=== PATIENT | female | born 1945 | race Caucasian/White ===

== ENCOUNTER → 2023-05-19 07:30 | Outpatient (REF) | payer MEDICARE, OTHER, SELFPAY | LOC: CLAB 07:30 | PROVIDERS: ATTENDING PHYSICIAN Surgery | DX: N20.0 Calculus of kidney (principal) | CPT/HCPCS: 82365 ==

== ENCOUNTER → 2023-09-02 13:06 | Outpatient (REF) | payer MEDICARE, OTHER, SELFPAY | LOC: RAD 13:06 | PROVIDERS: ATTENDING PHYSICIAN Surgery | DX: N20.0 Calculus of kidney (principal) | CPT/HCPCS: 76775 ==

== ENCOUNTER → 2024-08-10 15:10 | Outpatient (REF) | payer MEDICARE, OTHER, SELFPAY | LOC: RAD 15:10 | PROVIDERS: ATTENDING PHYSICIAN Surgery; FAMILY PHYSICIAN Family Medicine | DX: N20.0 Calculus of kidney (principal) | CPT/HCPCS: 76775 ==

== ENCOUNTER 2025-01-23 00:10 | Inpatient (IN) | payer MEDICARE, OTHER, SELFPAY ==
[2025-01-22 19:55] VITALS: BP 128/71
[2025-01-22 20:21] LABS: Hematocrit 38.6 % (37.0-47.0); Hemoglobin 12.3 g/dL (12.0-16.0); Mean Corp Hgb Conc. 31.9 g/dL (33.0-37.0); Mean Corpuscular Volume 93.7 fL (81.0-99.0); Nucleated Red Blood Cells % 0 %; Platelet Count 298 10^3/uL (130-400); Red Cell Dist. Width 13.4 % (11.5-14.5)
[2025-01-22 20:41] LABS: ALT (SGPT) 19 U/L (0-35); AST (SGOT) 24 U/L (14-36); Albumin 4.4 g/dl (3.5-5.0); Alkaline Phosphatase 48 U/L (38-126); Blood Urea Nitrogen 35 mg/dl (7-17); Calcium 9.6 mg/dl (8.4-10.2); Carbon Dioxide 23 mmol/L (22-30); Chloride 102 mmol/L (98-107); Glucose 162 mg/dl (70-99); Potassium 4.7 mmol/L (3.5-5.1); Sodium 137 mmol/L (135-145); Total Protein 6.8 g/dl (6.3-8.2); eGFR 51.11
--- NOTE | 2025-01-22 21:06 | ED.GENMED ---
History of Present Illness
<Donovan Palomo, DO - Last Filed: 01/22/25 22:46>
General
Chief Complaint: Extremity Pain (non-traumatic)
Source: patient
Exam Limitations: none
Time Seen by Provider: 01/22/25 20:53
History of Present Illness
History of Present Illness:
See MDM
Past History
<Donovan Palomo, DO - Last Filed: 01/22/25 22:46>
Past History
ED Past Medical History: Cancer, HTN, Hypercholesterolemia and Other
ED Past Surgical History: None and Orthopedic (Back surgery)
Patient has exhibited threatening behavior?: No
Social History
Tobacco: Non-smoker
Personal:
Living: with family
Phy Exam
<Donovan Palomo, DO - Last Filed: 01/22/25 22:46>
Physical Exam
Physical Exam:
See MDM
Course
<Donovan Palomo, DO - Last Filed: 01/22/25 22:46>
Orders/Labs/Results
Orders:
Orders
01/22/25 19:54
Electrocardiogram (*1) Urgent
Reason for Study: Other
Other Reason for Exam: Possible Sepsis
EKG- Treatment ONCE
01/22/25 20:00
Blood Culture Q20M
CRISTI Source: Blood/Venous
Specimen Description:
Comment: Urgent from separate sites. If patient screens positive for possible sepsis
01/22/25 20:15
Complete Blood Count/With Diff Urgent
Comprehensive Metabolic Panel Urgent
Lactic Acid Q4H
Comment: ON ICE, CANCEL 2ND ORDER IF FIRST LACTIC ACID LEVEL <2
Blood Culture Q20M
CRISTI Source: Blood/Venous
Specimen Description:
Comment: Urgent from separate sites. If patient screens positive for possible sepsis
01/22/25 21:01
CT Lower Ext W/iv Cont Rt Urgent
Comment:
Reason For Exam: R thigh pain and swelling
0.9% Sodium Chloride 1000 ml [Nss] 1,000 ml IV BOLUS
Morphine Sulfate 4 mg IV NOW STA
Piperacillin/Tazo 3.375 Gram [Zosyn] 3.375 gram in 50 ml IV NOW
01/22/25 21:03
Vancomycin [Vancocin] 1,500 mg 0.9% Sodium Chloride 500 ml [Nss] 500 ml IV NOW
01/22/25 21:17
Vancomycin [Vancocin] 2,000 mg 0.9% Sodium Chloride 500 ml [Nss] 500 ml IV NOW
01/22/25 22:32
Urinalysis Reflex To Culture Urgent
01/22/25 23:39
Hyaluronidase, Human Recomb. [Hylenex] 150 units SC NOW STA
Extravasation Stage:: Stage 2
Potential extravasated drug:: Vancomycin
Hyaluronidase, Human Recomb. [Hylenex] 150 units SC ONCE PRN PRN
Elevate Extremity As Directed
Extremity:: limb with extravasation site
Comment: x 24 hours`
Notify MD As Directed
Notify physician if: - Signs of infection (temperature greater than or equal to 100.4 F, chills).
- Signs of wound infection (swelling, redness, warmth around the wound, pain out of
proportion to injury).
- Skin changes color, peels, flakes, or blisters.
- Patient not able to move the affected limb.
Wound Care As Directed
Location of Wound: extravasation site
Treatment of Wound: assess and stage extravasation site.
initiate immediate topical therapy (cold/warm compress) as ordered.
01/22/25 23:40
Cold Application As Directed
Location: extravasation site
Frequency: Intermittent q2h
Duration of Application: No longer than 20 minutes
Method of Delivery: Cold compress
Comment: 20 minute application Q2H x 24 hours
01/22/25 23:57
Admit/Transfer Patient As Directed
Co-Sign Provider:
Level of Care: Inpatient admission
Assign to:: Medical/Surgical
Physician / Group: Adriana Zarco
Diagnosis: right leg pain and edema, skin infection
Reason for Hospitalization: right leg pain and edema, skin infection
Expected length of stay greater than two midnights?: Yes
ELOS- Estimated Length of Stay in days: 3
I certify the patient meets the requirements for IP care: Yes
PRN Pain Medication Management As Directed
May give lesser potent ordered pain med per pt: Yes
preference::
Protocol:: Medication orders for pain may be administered in a
manner that supports deferring to patient preference
when the pt is:
- Requesting an ordered lesser potent pain medication.
Least to most potent pain medications are defined
as: acetaminophen < NSAID < tramadol < opioids
(morphine, oxycodone, hydromorphone).
- Requesting a lesser dose of the same medication IF
ORDERED.
- Requesting a less intrusive route of administration
if both routes are prescribed by the provider (PO <
IV).
01/22/25 23:59
Code Status As Directed
Resuscitation Status: Do not resuscitate
Reached after discussion with pt or family/Healthcare POA: Yes
Decision communicated with: patient and daughter
DNR Bracelet Application ONCE
01/23/25 00:15
Lactic Acid Q4H
Comment: ON ICE, CANCEL 2ND ORDER IF FIRST LACTIC ACID LEVEL <2
Abnormal Lab Results
01/22/25
20:15
WBC 12.8 H 10^3/uL
(4.8-10.8)
RBC 4.12 L 10^6/uL
(4.20-5.40)
MCHC 31.9 L g/dL
(33.0-37.0)
Abs Immat Gran (auto) 0.1 H 10^3/uL
(0-0.05)
Absolute Neuts (auto) 11.2 H 10^3/uL
(1.4-6.5)
Absolute Lymphs (auto) 0.9 L 10^3/uL
(1.2-3.4)
Neutrophils % 87.8 H %
(42.2-75.2)
Lymphocytes % 7.2 L %
(20.5-51.1)
BUN 35 H mg/dl
(7-17)
Creatinine 1.1 H mg/dL
(0.6-1.0)
Glucose 162 H mg/dl
(70-99)
Lactic Acid 4.9 H* mmol/L
(0.7-2.0)
01/22/25 20:15
01/22/25 20:15
Vital Signs
Initial and Last Documented VS:
Initial Vital Signs
Temp Pulse Resp BP Pulse Ox
97.7 F 79 15 128/71 100
01/22/25 19:55 01/22/25 19:55 01/22/25 19:55 01/22/25 19:55 01/22/25 19:55
Last Documented Vital Signs
Temp Pulse Resp BP Pulse Ox
97.7 F 64 15 156/95 71
01/22/25 19:55 01/23/25 00:45 01/23/25 00:45 01/22/25 22:31 01/23/25 00:40
Angelalt;Abdulaziz Weems DO - Last Filed: 01/23/25 00:59>
Orders/Labs/Results
Orders:
Orders
01/22/25 19:54
Electrocardiogram (*1) Urgent
Reason for Study: Other
Other Reason for Exam: Possible Sepsis
EKG- Treatment ONCE
01/22/25 20:00
Blood Culture Q20M
CRISTI Source: Blood/Venous
Specimen Description:
Comment: Urgent from separate sites. If patient screens positive for possible sepsis
01/22/25 20:15
Complete Blood Count/With Diff Urgent
Comprehensive Metabolic Panel Urgent
Lactic Acid Q4H
Comment: ON ICE, CANCEL 2ND ORDER IF FIRST LACTIC ACID LEVEL <2
Blood Culture Q20M
CRISTI Source: Blood/Venous
Specimen Description:
Comment: Urgent from separate sites. If patient screens positive for possible sepsis
01/22/25 21:01
CT Lower Ext W/iv Cont Rt Urgent
Comment:
Reason For Exam: R thigh pain and swelling
0.9% Sodium Chloride 1000 ml [Nss] 1,000 ml IV BOLUS
Morphine Sulfate 4 mg IV NOW STA
Piperacillin/Tazo 3.375 Gram [Zosyn] 3.375 gram in 50 ml IV NOW
01/22/25 21:03
Vancomycin [Vancocin] 1,500 mg 0.9% Sodium Chloride 500 ml [Nss] 500 ml IV NOW
01/22/25 21:17
Vancomycin [Vancocin] 2,000 mg 0.9% Sodium Chloride 500 ml [Nss] 500 ml IV NOW
01/22/25 22:32
Urinalysis Reflex To Culture Urgent
01/22/25 23:39
Hyaluronidase, Human Recomb. [Hylenex] 150 units SC NOW STA
Extravasation Stage:: Stage 2
Potential extravasated drug:: Vancomycin
Hyaluronidase, Human Recomb. [Hylenex] 150 units SC ONCE PRN PRN
Elevate Extremity As Directed
Extremity:: limb with extravasation site
Comment: x 24 hours`
Notify MD As Directed
Notify physician if: - Signs of infection (temperature greater than or equal to 100.4 F, chills).
- Signs of wound infection (swelling, redness, warmth around the wound, pain out of
proportion to injury).
- Skin changes color, peels, flakes, or blisters.
- Patient not able to move the affected limb.
Wound Care As Directed
Location of Wound: extravasation site
Treatment of Wound: assess and stage extravasation site.
initiate immediate topical therapy (cold/warm compress) as ordered.
01/22/25 23:40
Cold Application As Directed
Location: extravasation site
Frequency: Intermittent q2h
Duration of Application: No longer than 20 minutes
Method of Delivery: Cold compress
Comment: 20 minute application Q2H x 24 hours
01/22/25 23:57
Admit/Transfer Patient As Directed
Co-Sign Provider:
Level of Care: Inpatient admission
Assign to:: Medical/Surgical
Physician / Group: Adriana Zarco
Diagnosis: right leg pain and edema, skin infection
Reason for Hospitalization: right leg pain and edema, skin infection
Expected length of stay greater than two midnights?: Yes
ELOS- Estimated Length of Stay in days: 3
I certify the patient meets the requirements for IP care: Yes
PRN Pain Medication Management As Directed
May give lesser potent ordered pain med per pt: Yes
preference::
Protocol:: Medication orders for pain may be administered in a
manner that supports deferring to patient preference
when the pt is:
- Requesting an ordered lesser potent pain medication.
Least to most potent pain medications are defined
as: acetaminophen < NSAID < tramadol < opioids
(morphine, oxycodone, hydromorphone).
- Requesting a lesser dose of the same medication IF
ORDERED.
- Requesting a less intrusive route of administration
if both routes are prescribed by the provider (PO <
IV).
01/22/25 23:59
Code Status As Directed
Resuscitation Status: Do not resuscitate
Reached after discussion with pt or family/Healthcare POA: Yes
Decision communicated with: patient and daughter
DNR Bracelet Application ONCE
01/23/25 00:15
Lactic Acid Q4H
Comment: ON ICE, CANCEL 2ND ORDER IF FIRST LACTIC ACID LEVEL <2
Abnormal Lab Results
01/22/25
20:15
WBC 12.8 H 10^3/uL
(4.8-10.8)
RBC 4.12 L 10^6/uL
(4.20-5.40)
MCHC 31.9 L g/dL
(33.0-37.0)
Abs Immat Gran (auto) 0.1 H 10^3/uL
(0-0.05)
Absolute Neuts (auto) 11.2 H 10^3/uL
(1.4-6.5)
Absolute Lymphs (auto) 0.9 L 10^3/uL
(1.2-3.4)
Neutrophils % 87.8 H %
(42.2-75.2)
Lymphocytes % 7.2 L %
(20.5-51.1)
BUN 35 H mg/dl
(7-17)
Creatinine 1.1 H mg/dL
(0.6-1.0)
Glucose 162 H mg/dl
(70-99)
Lactic Acid 4.9 H* mmol/L
(0.7-2.0)
01/22/25 20:15
01/22/25 20:15
Vital Signs
Initial and Last Documented VS:
Initial Vital Signs
Temp Pulse Resp BP Pulse Ox
97.7 F 79 15 128/71 100
01/22/25 19:55 01/22/25 19:55 01/22/25 19:55 01/22/25 19:55 01/22/25 19:55
Last Documented Vital Signs
Temp Pulse Resp BP Pulse Ox
97.7 F 64 15 156/95 71
01/22/25 19:55 01/23/25 00:45 01/23/25 00:45 01/22/25 22:31 01/23/25 00:40
<Donovan Palomo, DO - Last Filed: 01/22/25 22:46>
MDM/Problems Addressed
Differential Diagnosis Includes:
Note:
CHIEF COMPLAINT(S)
Leg pain.
HISTORY OF PRESENT ILLNESS
The patient is a 79-year-old female with a medical history of rheumatoid arthritis, fibromyalgia, and previous femur surgery three to four years ago. She presents with significant pain on the top of her leg that began approximately eight days ago.
The patient describes the swelling and believes it may be fluid buildup. She has had multiple surgeries, including a femur reconstruction and two artificial knees, and is currently on prednisone for her condition. The patient reports taking
prednisone, prescribed by her family doctor for her leg pain, prior to this visit. No recent injury was noted besides having activities such as gardening. The patients lab work shows elevated lactic acid levels and a slight elevation in white blood
cell count. Given that she is on Eliquis, patient likely does not have a blood clot. Given the swelling and elevated lactic acid, will obtain CT imaging for deep space infection. No crepitus to suspect necrotizing fasciitis
PAST MEDICAL AND SURGICAL HISTORY
- Rheumatoid arthritis
- Fibromyalgia
- Femur surgery (3-4 years ago)
- Two knee arthroplasties
CHRONIC MEDICAL CONDITIONS SIGNIFICANTLY AFFECTING CARE
Chronic conditions affecting care include rheumatoid arthritis and fibromyalgia.
PHYSICAL EXAM
General: Alert, no acute distress.
Skin: Warm, dry.
Head: Normocephalic, atraumatic
Neck: Appears supple, trachea midline.
Eyes, Ears, Nose, Mouth, and Throat: Moist mucous membranes
Cardiovascular: No signs of cyanosis
Respiratory: Respirations are non-labored.
Abdomen: Non-distended
Musculoskeletal: Swelling and tenderness noted to right anterior lateral thigh without ischemic changes. Distal extremity neurovascularly intact. No crepitus
Neurological: No focal neurological deficit observed.
Psychiatric: Cooperative, appropriate mood and affect.
PLAN
- Perform a computed tomography (CT) scan to evaluate for fluid, infection, or structural issues in the leg.
- Administer antibiotics: Vancomycin and Piperacillin/Tazobactam (Zosyn) initiated.
- Pain management with a small dose of morphine is planned to alleviate leg pain without excessive sedation.
DIFFERENTIAL DIAGNOSIS
The Differential Diagnosis includes, in no particular order and is not limited to:
- Cellulitis
- Septic arthritis
- Deep vein thrombosis
- Osteomyelitis
- Complex regional pain syndrome
- Fracture or pseudo fracture
- Hematoma
- Rheumatoid arthritis flare
- Rupture of Bakers cyst
- Bursitis
SUMMARY OF ENCOUNTER
The patient was seen in the emergency department for severe leg pain with associated swelling. She has a history of rheumatoid arthritis and fibromyalgia, complicating the diagnostic challenge. Lab work indicates elevated lactic acid levels,
prompting the initiation of antibiotics due to potential infection. A CT scan of the leg was ordered to further evaluate the underlying cause, primarily considering the presence of fluid or infection. Pain management was implemented with a low dose
of morphine.
DISPOSITION
The patient is planned to be admitted for overnight observation and further evaluation.
ASSESSMENT
The patient presents with leg pain and swelling, with a clinical suspicion of underlying infection, and is receiving antibiotics empirically. A CT scan will provide further diagnostic clarification.
EMERGENCY TREATMENTS ADMINISTERED
- Vancomycin and Piperacillin/Tazobactam (Zosyn)
- Morphine for pain management
MANAGEMENT OF THE PATIENTS CARE WAS DISCUSSED WITH
Details regarding management were discussed with the patient and her acceptance for admission was confirmed.
MEDICATION RECONCILIATION
- Currently on prednisone as prescribed by a family doctor for leg pain.
MEDICAL DECISION MAKING
- Number and Complexity of Problems Addressed:
Chronic conditions affecting care include rheumatoid arthritis and fibromyalgia.
The Differential Diagnosis includes cellulitis, septic arthritis, and others.
- Data:
Category 1:
Lab work reviewed revealed elevated lactic acid levels and slight leukocytosis.
CT scan was ordered for further evaluation of the leg.
Category 3:
Antibiotic management initiated based on lab findings and clinical suspicion.
- Risk:
Consideration of Admission/Observation: Escalation of care including admission/observation was considered given the complexity and risk of the patients presenting complaint, exam findings, and/or their underlying comorbidities. However, ultimately,
it was felt the patient is safe for outpatient management with close follow-up. The reasoning was the work-up is reassuring and does not reveal any acute life/organ-threatening processes. The patients symptoms were well controlled upon reevaluation,
reexamination is reassuring, vitals are stable, patient agreeable with discharge, reliable for follow-up.
DIAGNOSIS
- Leg pain - ICD-10 Code M79.605
<Donovan Palomo, DO - Last Filed: 01/22/25 22:46>
*Pulse Oximetry
SaO2: 100
Oxygen Mode of Delivery: Room air
Patient hypoxic: no
*Critical Care Note
Total Time (30-74mins, 75-104mins- exclusive of procedures): Not Applicable
<Abdulaziz Weems, DO - Last Filed: 01/23/25 00:59>
Update Note
Update Note:
NAME: LUCINDA PRITCHETT
DATE OF EXAM: 01/23/2025
Patient No: [id number]
Physician: DONAL^YOHANA
Date of : 1945
Past Medical History (entered by Technologist):
Reason For Exam (entered by Technologist):
Other Notes (entered by Technologist): rt leg swelling and pain
prior pelvis ct sent
Additional Information (per [facility]):
CT right lower extremity with contrast
IMPRESSION:
Imaging from right pelvis through knee joint.
Moderate subcutaneous edema lateral right thigh with crescentic lateral compartment superficial muscle fascial crescentic mass suspicious for hematoma, measuring 3 cm transverse, 9.5 cm AP, and 20 cm in length. Few serpiginous foci of
hypoenhancement within superior aspect suspicious for active extravasation. Follow-up to exclude underlying mass advised.
Intact right femoral neck screws for treatment of femoral neck fracture documented on 12/29/2020 exam. New end-stage arthritic/atrophic change right femoral head resulting in screw ends abutting acetabular margin. Possible granulation
tissue/hypertrophied synovium along inferior right hip joint.
Visualized intrapelvic contents unremarkable. Hysterectomy. Moderate fecal loading. No adenopathy.
Severe right gluteal muscle atrophy. Lower lumbar posterior fusion partially visualized.
Right knee arthroplasty.
Minimal lower aortic atherosclerotic calcification. Right common and external iliac arteries patent. Common femoral, profundofemoral and superficial femoral artery demonstrate mild atherosclerosis.
Findings discussed with Dr. Weems in the ER at 12:50 AM ET
Case finalized on 01/23/25 00:55 EST
Donaldo Wright M.D.
This report has been electronically signed and verified by the Radiologist whose name is printed above.
ED Attending Note
<Donovan Palomo, DO - Last Filed: 01/22/25 22:46>
-
Portions of this chart may have been created with voice recognition software.� Occasional wrong word or��sound alike� substitutions may have occurred due to the inherent limitations of voice recognition software.
Discharge Plan
Departure
Patient Disposition: Admit
Date of Disposition: 01/22/25
Time of Disposition: 22:45
Admit to: Med/Surg
Presentation/result/management discussed w/ accepting MD/DO: Hospitalist
Discharge Problem:
Skin infection
Interventions
Interventions:
*Risk Screen - Suicide Last Done: 01/22/25 19:55
*General Assessment Last Done: 01/22/25 19:55
*Neglect/Abuse Screening Last Done: 01/22/25 19:55
*ED- Fall Risk Assessment Last Done: 01/22/25 21:16
*ED COVID-19 Vaccine History Last Done: 01/22/25 19:55
*ED Influenza Vaccine History Last Done: 01/22/25 19:55
ED-Skin Assessment Last Done: 01/22/25 21:16
ED-Peripheral Vascular Assessment Last Done: 01/22/25 21:16
ED-Musculoskeletal Assessment Last Done: 01/22/25 21:16
[2025-01-22 21:09] VITALS: BMI 29.4
[2025-01-22 21:48] VITALS: BP 151/71
[2025-01-22] MEDS: MORPHINE SULFATE 4 MG IV (22:11)
[2025-01-22] MEDS: VANCOCIN IV ×2 (22:27→23:36)
[2025-01-22 22:31] VITALS: BP 156/95
--- NOTE | 2025-01-22 23:08 | HPS.HSE ---
Family Physician
-
Family Physician: Emigdio Lozano
Chief Complaint
-
right thigh pain and swelling
History of Present Illness
Patient is a 79-year-old female with past medical history significant for hypertension, hyperlipidemia, paroxysmal atrial fibrillation, HFrEF, Rheumatoid arthritis, nonischemic cardiomyopathy, moderate mitral regurgitation, Hx uterine cancer and Hx
breast cancer who presented to [facility] ED for evaluation of right thigh pain and edema. Patient reports that pain started approximately 5 days ago and has gotten significantly worse since onset and today started with swelling. She endorses nausea and
vomiting today. Denies fever, chills, cough, shortness of breath, chest pain, diarrhea or urinary symptoms.
Medical History
Past Medical History
Past Medical History: Reports Other
Additional Past Medical History:
hypertension
hyperlipidemia
paroxysmal atrial fibrillation
HFrEF
Rheumatoid arthritis
nonischemic cardiomyopathy
moderate mitral regurgitation
Hx uterine cancer
Hx breast cancer
Past Surgical History: Reports Other
Additional Past Surgical History:
LUPE/BSO (endometrial ca) 1992
Cholecystectomy
tonsillectomy
Bilateral knee replacements
Surgery, lumbar spine
Lumpectomy
decompression and fusion lumbar spine 03/25/2020
Right Femoral Neck Cannulated Screw Fixation 12.31.2020 SG
right URS/LL/stone extraction/stent placement 04/2023
Social History
Tobacco: Non-smoker
Alcohol: None
Drug: None
Living: Alone
Family History
Family History: Not pertinent
Allergies / Home Medications
Allergies reflects when Allergies were last updated in [employer].
Home Medications with original date entered in [employer]
Allergy/Medication List:
Allergies
Allergy/AdvReac Type Severity Reaction Status Date / Time
Sulfa (Sulfonamide Allergy Hives Verified 01/22/25 21:08
Antibiotics)
Home Medications
Lactobac no.2-Bifidobac no.1-S. thermo 112.5 billion cell capsule (High Potency Probiotic) 1 cap PO DAILY PROBIOTIC 11/30/19
calcium 600 mg (as carbonate)-vit D3 20 mcg (800 unit) chewable tablet (Caltrate plus D) 1 tab PO HS Supplement 06/21/20
ascorbic acid (vitamin C) 500 mg tablet (Vitamin C) 500 mg PO DAILY Supplement 12/29/20
atorvastatin 40 mg tablet 40 mg PO DAILY High cholesterol 12/29/20
omeprazole 20 mg delayed release,disintegrating tablet 20 mg PO DAILY Gastrointestinal issue 12/29/20
baclofen 5 mg tablet 5 mg PO BID 01/22/25
duloxetine 30 mg capsule,delayed release 30 mg PO DAILY 01/22/25
duloxetine 60 mg capsule,delayed release 60 mg PO DAILY 01/22/25
metoprolol succinate 25 mg tablet,extended release 24 hr 25 mg PO DAILY 01/22/25
metoprolol succinate 50 mg tablet,extended release 24 hr 50 mg PO DAILY 01/22/25
prednisone 10 mg tablet 10 mg PO DAILY 01/22/25
pregabalin 50 mg capsule 50 mg PO DAILY 01/22/25
Review of Systems
-
History Source: Patient
Constitutional: Denies Fever or Chills
EENT: Denies Sore Throat
Respiratory: Denies Cough, Hemoptysis or Trouble Breathing
Cardiac: Denies Chest Pain, Diaphoresis, Palpitations or Syncope
Abdomen/GI: Reports Nausea and Vomiting; Denies Abdominal Pain or Diarrhea
: Denies Dysuria, Frequency or Urgency
Musculoskeletal: Reports Other (right thigh pain and swelling )
Skin: Denies Rash
Neurological: Denies Dizzy, Headache, Weakness or Numbness
Endocrine: Denies Polyuria or Polydipsia
Physical Exam
Vital Signs
Vital Signs
Temp Pulse Resp BP Pulse Ox
97.7 F 79 15 128/71 100
01/22/25 19:55 01/22/25 19:55 01/22/25 19:55 01/22/25 19:55 01/22/25 21:08
Physical Exam
General: Well Developed, Well Nourished, No Apparent Distress, Comfortable, Conversant and Obese
HEENT: NormoCephalic, Moist mucous membranes, PERRLA, Nose Appears Normal and Ears Appear Normal
Respiratory: Clear and Non Labored Respirations; No Wheezes, Rales or Rhonchi
Cardiac: Regular Rhythm; No Murmur
GI: Soft, Non Tender, Non Distended and Normal Bowel Sounds
Musculoskeletal: No Clubbing, No Cyanosis and Other (right thigh edema, tender to palpation)
Skin: Warm and IV/Catheter Site (infiltrated )
Neuro: Awake and AO x 3
Psych: Calm
Laboratory Results
-
01/22/25 20:15
01/22/25 20:15
Laboratory Results
Lactic Acid 4.9 mmol/L (0.7-2.0) H* 01/22/25 20:15
Total Bilirubin 0.8 mg/dl (0.2-1.3) 01/22/25 20:15
AST 24 U/L (14-36) 01/22/25 20:15
ALT 19 U/L (0-35) 01/22/25 20:15
Alkaline Phosphatase 48 U/L (38-126) 01/22/25 20:15
Data Reviewed
-
Medical Tests (Nuc Med, Echo, EKG etc): Report Reviewed by me (EKG: SINUS RHYTHM WITH PREMATURE ATRIAL COMPLEXES IN A PATTERN OF BIGEMINY MINIMAL VOLTAGE CRITERIA FOR LVH, MAY BE NORMAL VARIANT ( R in aVL ))
Lab Data: Labs Reviewed by me (WBC 12.8, Neut 87.8, BUN 35, Creat 1.1, Lactic 4.9)
Impression/Plan
-
IMPRESSION/PLAN:
#right thigh pain and swelling
right thigh pain progressively worsening over 5 days, swelling started today
WBC 12.8, Neut 87.8, BUN 35, Creat 1.1, Lactic 4.9
Blood Cx: pending
EKG: SINUS RHYTHM WITH PREMATURE ATRIAL COMPLEXES IN A PATTERN OF BIGEMINY
MINIMAL VOLTAGE CRITERIA FOR LVH, MAY BE NORMAL VARIANT ( R in aVL )
- Admit to med/surg
- Consult Surgery
- IV LR 80cc/hr
- IV Vanco and Zosyn
- hold Eliquis
- check INR in AM
- trend lactic
- supportive care with leg elevation and cold compress PRN
#hypertension
- continue metoprolol
#hyperlipidemia
- continue atorvastatin
#paroxysmal atrial fibrillation
- continue metoprolol
- hold Eliquis
#HFrEF
#nonischemic cardiomyopathy
- daily weights
- I & Os
#Rheumatoid arthritis
- continue pregabalin and duloxetine
#moderate mitral regurgitation
#Hx uterine cancer
#Hx breast cancer
Code status: DNR
DVT prophylaxis: SCDs
--- NOTE | 2025-01-22 23:10 | W.PN.UPDATE ---
Update Note
Progress Note Update
Patient seen in conjunction with nurse practitioner, and agree with the findings and physical. I concur with assessment and plan unless otherwise stated.
Briefly, this is a 79-year-old female with past medical history of rheumatoid arthritis on DMARD infufsion, hypertension, hyperlipidemia, atrial fibrillation anticoagulation, CHF, nonrheumatic mitral regurgitation, nephrolithiasis, bilateral knee
replacements, right ORIF who presents to the emergency department with pain and swelling in his left leg that began yesterday.
Patient reports increasing pain in the right lower extremity for a few days. She did see a PMD who prescribed a steroid taper. Over the last 2 days the pain has gotten worse and she reported rapid swelling of right thigh today. She has not had
any fevers or chills. She reports no chronic weakness. She reports taking Eliquis in the morning but she has not taken her evening dose. She has a prior history of uterine cancer and breast cancer status post lumpectomy XRT and hormone therapy
completed.
In the emergency department she was afebrile, blood pressure was 128/70 with a pulse of 79 and she is satting 100% on room air. Temperature was 91.7. ECG shows a sinus rhythm at rate of 75 with PACs. Labs were remarkable for a white count of 12.8
hemoglobin and platelets were normal. Electrolytes BUN and creatinine were stable. Lactic acid was elevated at 4.9.
CT of the right lower extremity is pending.
Assessment and plan
79-year-old with history of rheumatoid arthritis, fibromyalgia, atrial fibrillation on anticoagulation, hypertension, hyperlipidemia presenting to the emergency department with pain and swelling to the right lower extremity. She is anticoagulated
on Eliquis. DVT pain and swelling is in the right thigh is suggestive of hematoma or an abscess.
She has elevated lactic acid, otherwise her labs are mostly benign and she is hemodynamically stable at this time and afebrile.
Right lower extremity swelling -suspect abscess versus hematoma
� Admit to telemetry
� Blood cultures sent
� CT scan pending
� IV Zosyn plus vancomycin
� MRSA swab
� Holding Eliquis for now
-N.p.o. for now
� Surgical specialty consult depending on CT scan finding
Atrial fibrillation -currently rate controlled
� Continue amiodarone 200 mg
� Continue metoprolol 100 mg succinate
UPDATE: CT showing moderate subcutaneous edema lateral right thigh with crescentic lateral compartment superficial muscle fascial crescentic mass suspicious for hematoma, measuring 3 cm transverse, 9.5 cm AP, and 20 cm in length. Few serpiginous
foci of hypoenhancement within superior aspect suspicious for active extravasation.
- d/c abx
- vascular consult
- hold off on reversal for now
DVT prophylaxis�on apixaban, holding for now pending CT scan
CODE STATUS�DNR
[2025-01-23] VITALS (15 sets, daily range): BP systolic 20–178; BP diastolic 41–102; BMI 29.1
[2025-01-23] MEDS: HYLENEX 150 UNITS SC (00:20)
--- NOTE | 2025-01-23 00:37 | VATNOTE ---
0020-VANCO INFILTRATE NOTED IN RAC. PCN REMOVED USG IV PRIOR TO MY ARRIVAL. AREA IS VERY RED AND MEASURES [id number]. PT REPORTS MINIMAL DISCOMFORT. PROVIDER AND THREE DIMENSIONAL MAP MODELER MADE AWARE AND BOTH SAW AFFECTED AREA. TREATED WITH HYLENEX PER PROTOCOL AND
DOCUMENTED. VANCO RESUMED AFTER PT RETURNED FROM CT SCAN AT THE REDUCED RATE ORDERED BY . PCN AND PROVIDER AWARE OF INTERVENTION AND OUTCOME. PT TOLERATED PROCEDURE WELL. VAT TO FOLLOW .
[2025-01-23] MEDS: VANCOCIN 540 MG IV (00:44)
[2025-01-23] MEDS: MORPHINE SULFATE 2 MG IV ×2 (02:30→08:26)
--- NOTE | 2025-01-23 02:41 | PTCARENOTE ---
Patient arrived from the ED via stretcher. Patient pulled over onto the bed. AAOx3, VSS. BP elevated. C/o 8/10 pain to the right thigh. + edema. Right upper arm edematous from infiltrate. Elevated onto a pillow. Vanco infusing already at half rate
per MD order in ED. No redness/swelling/pain to the site. Patient continent of urine. Using bedpan. Patient updated on plan of care, oriented to the room. Call rosas is within reach.
[2025-01-23 02:43] LABS: Urine Character Clear (Clear)
[2025-01-23] MEDS: LR 1000 IV ×2 (03:23→21:22)
[2025-01-23 04:33] LABS: Urine Squamous Cell 0-2 /LPF (Few)
[2025-01-23 04:36] LABS: Urine Red Blood Cell 0-2 /HPF (0-2)
[2025-01-23 06:05] LABS: Blood Urea Nitrogen 33 mg/dl (7-17); Calcium 8.7 mg/dl (8.4-10.2); Carbon Dioxide 25 mmol/L (22-30); Chloride 105 mmol/L (98-107); Estimated Creatinine Clearance 49 ml/min; Glucose 97 mg/dl (70-99); Potassium 4.2 mmol/L (3.5-5.1); Sodium 137 mmol/L (135-145); eGFR > 60.00
--- NOTE | 2025-01-23 06:07 | VATNOTE ---
REASSESSED RAC AFTER HYLENEX ADMINISTERED. SITE APPEARS MUCH IMPROVED. ONLY FAINT PINKNESS NOTED AND SWELLING HAS DIMINISHED SIGNIFICANTLY. PT ENDORSES NO PAIN. WILL CONTINUE TO MONITOR.
[2025-01-23 07:06] LABS: Hematocrit 29.7 % (37.0-47.0); Hemoglobin 10.1 g/dL (12.0-16.0); Mean Corp Hgb Conc. 34.0 g/dL (33.0-37.0); Mean Corpuscular Volume 88.1 fL (81.0-99.0); Platelet Count 221 10^3/uL (130-400); Red Cell Dist. Width 13.5 % (11.5-14.5)
--- NOTE | 2025-01-23 07:47 | W.PN.UPDATE ---
Update Note
Progress Note Update
Seen and examined with LAURA Wiseman. Full consultation to follow. Briefly 79-year-old female with extensive medical history as noted. Including atrial fibrillation on anticoagulation. No recent trauma that she is aware of. But a few days ago she
developed new onset of right lateral thigh pain and swelling. She noted however 2 days ago that this significantly swelled up more and was increasingly painful. Has continued pain now constantly. Significant tenderness she notes. No prior
history of any bleeding issues. No history of peripheral arterial disease. No history of coronary artery disease. No history of tobacco use.
I did ask her about walking limitation. She notes that she has been chronically walking with a cane even prior to this due to balance issues.
On exam/she is awake and alert. Breathing is unlabored. Abdomen is soft. 2+ palpable femoral pulses bilaterally. Right anterior/lateral thigh with swelling noted. Some fullness of the compartment but it compressible. Tenderness significantly
to compression. No skin changes. No blistering of the skin. Motor/sensory function fully intact. Feet are both warm and pink with palpable DP pulses bilaterally.
CT scan images from last evening reviewed. I personally reviewed the images. She has at least moderate right lateral thigh hematoma within the muscle compartment. (Anterior compartment). On images 80-92 out of 621 and series 201 there is what
appears to be some extravasation within this hematoma.
Plan/ Recently expanded right lateral thigh hematoma. Discussed with her that with no skin blistering, no evidence of compartment syndrome, no evidence of nerve compression, we could try to manage conservatively or alternatively she is having
significant pain could relieve it. She notes that she is having continued constant pain and 'I cannot continue to live like this.' Therefore discussed with her that based on the continued pain as well as extravasation noted on CT scan imaging,
would favor evacuation of hematoma surgically. Discussed this procedure. Discussed risk/benefits and alternatives with her. Discussed risks including but not limited to bleeding, infection, continued bleeding and need for additional surgeries,
recurrent bleeding. She understands all these things and wishes to proceed. Will add her onto the schedule for washout today. Continue to hold anticoagulation.
--- NOTE | 2025-01-23 07:52 | CON.VAS ---
Consultation
Consultation Request
Date/Time Consultation Performed: 01/23/25 @ 7:30am
Performing Provider: Jg
Reason for Consultation: Right thigh hematoma
Medical History
-
Chief Complaint: Right thigh pain
History of Present Illness:
79-year-old female with extensive medical history including hypertension, hyperlipidemia, paroxysmal atrial fibrillation on eliquis, HFrEF, Rheumatoid arthritis, nonischemic cardiomyopathy. No recent trauma that she is aware of. But a few days ago
she developed new onset of right lateral thigh pain and swelling. She noted however 2 days ago that this significantly swelled up more and was increasingly painful. Has continued pain now constantly. Significant tenderness she notes. No prior
history of any bleeding issues. No history of peripheral arterial disease. No history of coronary artery disease. No history of tobacco use.
I did ask her about walking limitation. She notes that she has been chronically walking with a cane even prior to this due to balance issues.
CT scan images from last evening reviewed. I personally reviewed the images. She has at least moderate right lateral thigh hematoma within the muscle compartment. (Anterior compartment). On images 80-92 out of 621 and series 201 there is what
appears to be some extravasation within this hematoma.
Past Medical History
Past Medical History: Other (hypertension, hyperlipidemia, paroxysmal atrial fibrillation, HFrEF, Rheumatoid arthritis, nonischemic cardiomyopathy, moderate mitral regurgitation, Hx uterine cancer, Hx breast cancer )
Past Surgical History: Other (LUPE/BSO (endometrial ca) 1992, Cholecystectomy, tonsillectomy, Bilateral knee replacements, Surgery, lumbar spine, Lumpectomy, decompression and fusion lumbar spine 03/25/2020, Right Femoral Neck Cannulated Screw
Fixation 12.31.2020 SG, right URS/LL/stone extraction/stent placement 04/2023)
Social History
Tobacco: Non-Smoker
Alcohol: None
Living: Alone
Family History
Family History: Reviewed & Not Pertinent
Allergies / Home Medications
Allergy/AdvReac Type Severity Reaction Status Date / Time
Sulfa (Sulfonamide Allergy Hives Verified 01/22/25 21:08
Antibiotics)
�Medication �Instructions �Recorded �Confirmed �Type
Lactobac no.2-Bifidobac no.1-S. 1 cap PO DAILY PROBIOTIC 11/30/19 01/22/25 History
thermo 112.5 billion cell capsule
(High Potency Probiotic)
calcium 600 mg (as carbonate)-vit 1 tab PO HS Supplement 06/21/20 01/22/25 History
D3 20 mcg (800 unit) chewable
tablet (Caltrate plus D)
ascorbic acid (vitamin C) 500 mg 500 mg PO DAILY Supplement 12/29/20 01/22/25 History
tablet (Vitamin C)
atorvastatin 40 mg tablet 40 mg PO DAILY High cholesterol 12/29/20 01/22/25 History
omeprazole 20 mg delayed 20 mg PO DAILY Gastrointestinal 12/29/20 01/22/25 History
release,disintegrating tablet issue
baclofen 5 mg tablet 5 mg PO BID 01/22/25 01/22/25 History
duloxetine 30 mg capsule,delayed 30 mg PO DAILY 01/22/25 01/22/25 History
release
duloxetine 60 mg capsule,delayed 60 mg PO DAILY 01/22/25 01/22/25 History
release
metoprolol succinate 25 mg 25 mg PO DAILY 01/22/25 01/22/25 History
tablet,extended release 24 hr
metoprolol succinate 50 mg 50 mg PO DAILY 01/22/25 01/22/25 History
tablet,extended release 24 hr
prednisone 10 mg tablet 10 mg PO DAILY 01/22/25 01/22/25 History
pregabalin 50 mg capsule 50 mg PO DAILY 01/22/25 01/22/25 History
Review of Systems
-
History Source: Patient
All other systems: Negative unless noted
Constitutional: Reports No Symptoms
EENT: Reports No Symptoms
Respiratory: Reports No Symptoms
Cardiac: Reports No Symptoms
Vascular: Denies Leg Pain / Claudication, Numbness or Tingling
Abdomen/GI: Reports No Symptoms
: Reports No Symptoms
Musculoskeletal: Reports Muscle Pain and Edema
Skin: Reports No Symptoms
Neurological: Reports No Symptoms
Physical Exam
Vital Signs
Temp Pulse Resp BP Pulse Ox
97.4 F 65 18 178/85 96
01/23/25 01:51 01/23/25 01:51 01/23/25 01:51 01/23/25 01:51 01/23/25 02:52
Lab Results
01/23/25 05:11
01/23/25 05:12
Physical Exam
General: No Apparent Distress
HEENT: Normocephalic and Atraumatic
Respiratory: Non Labored Respirations
Cardiac: Negative JVD
GI: Soft and Non Tender
Musculoskeletal: No Clubbing, No Cyanosis and Edema (RLE)
Skin: Warm and Other (slight ecchymosis right lateral thigh)
Neuro: Awake, Alert and Oriented
Psych: Calm
Pulses: Bilateral Dorsalis Pedis: +1
Assessment / Plan
-
Plan/ Recently expanded right lateral thigh hematoma. Discussed with her that with no skin blistering, no evidence of compartment syndrome, no evidence of nerve compression, we could try to manage conservatively or alternatively she is having
significant pain could relieve it. She notes that she is having continued constant pain and 'I cannot continue to live like this.' Therefore discussed with her that based on the continued pain as well as extravasation noted on CT scan imaging,
would favor evacuation of hematoma surgically. Discussed this procedure. Discussed risk/benefits and alternatives with her. Discussed risks including but not limited to bleeding, infection, continued bleeding and need for additional surgeries,
recurrent bleeding. She understands all these things and wishes to proceed. Will add her onto the schedule for washout today. Continue to hold anticoagulation.
Data Reviewed
-
CT Scan: Discussed with Patient
[2025-01-23] MEDS: CYMBALTA DELAYED RELEASE 60 MG PO (08:27)
[2025-01-23] MEDS: LIPITOR 40 MG PO (08:27)
[2025-01-23] MEDS: LYRICA 50 MG PO (08:27)
[2025-01-23] MEDS: PROTONIX 40 MG PO (08:28)
[2025-01-23] MEDS: VISBIOME 1 CAP PO (08:28)
[2025-01-23] MEDS: LIORESAL 5 MG PO ×2 (08:28→21:00)
[2025-01-23] MEDS: TOPROL XL 50 MG PO (08:28)
[2025-01-23] MEDS: TOPROL XL 25 MG PO (08:28)
[2025-01-23] MEDS: VITAMIN C 500 MG PO (08:28)
[2025-01-23] MEDS: CYMBALTA DELAYED RELEASE 30 MG PO (08:28)
--- NOTE | 2025-01-23 09:09 | W.PN.HOSP.TC ---
Today's Communication/Plan
-
see A/P
Assessment / Plan
Assessment / Plan
HPI: 79-year-old female with past medical history significant for hypertension, hyperlipidemia, paroxysmal atrial fibrillation, HFrEF, Rheumatoid arthritis, nonischemic cardiomyopathy, moderate mitral regurgitation, Hx uterine cancer and Hx breast
cancer; who presented with right thigh pain and edema. Patient reports that pain started approximately 5 days ago [employer] and has gotten significantly worse since onset and on DOA started with swelling.
She endorses nausea and vomiting on DOA.
A/P:
# right thigh pain and swelling
prelim CT showed moderate subcutaneous edema lateral right thigh with crescentic lateral compartment superficial muscle fascial crescentic mass suspicious for hematoma, measuring 3 cm transverse, 9.5 cm AP, and 20 cm in length. Few serpiginous foci
of hypoenhancement within superior aspect suspicious for active extravasation.
Vascular on board, favor evacuation of hematoma surgically due to severe pain.
Plan for washout today 01/23.
Continue to hold anticoagulation.
# hypertension
continue metoprolol with hold parameter
# hyperlipidemia
continue atorvastatin
# paroxysmal atrial fibrillation
continue metoprolol with hold parameter
hold Eliquis
# HFrEF
# nonischemic cardiomyopathy
daily weights, I & Os
# Rheumatoid arthritis
continue pregabalin and duloxetine
# moderate mitral regurgitation
# Hx uterine cancer
# Hx breast cancer
Code status: DNR
DVT prophylaxis: SCDs
Anticipated Discharge: > 48 hours
Subjective/Interval History
-
Date of Service: January 23, 2025
Objective Data
-
Labs:
Laboratory Results
01/23/25 01/23/25 01/23/25
05:11 05:12 06:00
WBC 16.4 H
Hgb 10.1 L
Hct 29.7 L
Plt Count 221 D
PT Pending
INR Pending
Sodium 137
Potassium 4.2
Chloride 105
Carbon Dioxide 25
BUN 33 H
Creatinine 0.9
Glucose 97
Calcium 8.7
Vital Signs:
Vital Signs
Temp Pulse Resp BP Pulse Ox
36.3 C 77 18 160/71 96
01/23/25 01:51 01/23/25 08:28 01/23/25 01:51 01/23/25 08:28 01/23/25 02:52
I&O
01/22/25 01/23/25 01/24/25
06:59 06:59 06:59
Intake Total 0 / 0
Balance 0 / 0
Review of Systems
-
History Source: Patient
Musculoskeletal: Reports Other (R thigh pain)
Physical Exam
-
General: Well Developed, Well Nourished, No Apparent Distress, Comfortable and Conversant; Negative Respiratory Distress
HEENT: Normocephalic, Atraumatic, Nose Appears Normal and Ears Appear Normal; Negative Oxygen
Respiratory: Clear to Auscultation and Non Labored Respirations; Negative Accessory Resp Muscle Use
Cardiac: Regular Rhythm and S1/S2
GI: Soft, Nontender, Nondistended and Normal Bowel Sounds
Skin: Warm and Dry
Neuro: Awake and Alert
Psych: Calm and Intact Judgement/Insight
Data Reviewed
-
Labs: Labs Reviewed by me
[2025-01-23] MEDS: BACTROBAN NASAL 1 GRAM NASAL (09:59)
--- NOTE | 2025-01-23 10:30 | TRANSFER ---
Report received from Nicole and patient received at 0935. Patient wiped and administered nasal bactroban ointment. Patient seen by Dr. Atkinson and Dr. Gregorio. VSS 133/102 HR 75 sats 95% RR 14. Report given to SOLANGE BRAY and now being seen by Desiree KRISHNAMURTHY
before being transferred in to vascular OR at 10:40.
--- NOTE | 2025-01-23 10:48 | W.SUR.PREOP ---
Pre-Operative Surgical Note
-
I have examined this patient prior to the performance of the scheduled procedure.
The patient's condition is unchanged from the time of the current History and
Physical and the patient is able to undergo the scheduled procedure.
--- NOTE | 2025-01-23 12:14 | OR.RPT ---
Operative Report
Operative Report
PROCEDURE DATE: 01/23/2025
Preoperative diagnosis: Tense painful hematoma right lateral thigh.
Postoperative diagnosis: Same
Procedure: Evacuation
Surgeon: Jg
Assurance Manager: LAURA Wiseman, required for aspects of procedure including assistance with traction/countertraction, assistance with closure.
Complications: None
Anesthesia: General
Indications for procedure:
Tense hematoma causing a lot of pain. In addition, CT demonstrated possible extravasation. Given recent expansion, continued pain, discussed with patient conservative management versus evacuation. She understood all discussion points and wished
to proceed with evacuation hematoma. Risk/benefits/alternatives all discussed. She understood and wished to proceed.
Description of procedure:
Patient was identified brought to the operating room placed on the table in supine position. After the adequate administration of anesthesia she was prepped and draped in the standard surgical fashion. A standard preoperative timeout was
undertaken and everybody was in agreement the plan. Longitudinal incision was made in the lateral proximal to mid thigh overlying where I could feel the compartment was somewhat leigh. This incision was carried through the skin and subcutaneous
tissue. There was a significant depth of subcutaneous tissue with generalized oozing from the tissue likely from her history of anticoagulation. Electrocautery was used to control any oozing. Self-retaining retractors were placed once I got down
to the level of the fascia. Fascia was not significantly bulging, but when I would push on it I could feel slight fullness. I then used electrocautery to incise the fascia. As soon as I did this I encountered gelatinous hematoma. I then
evacuated large amount of gelatinous hematoma throughout this anterior compartment. Significant hematoma was evacuated. Once I evacuated all the hematoma I inspected for any active bleeding and did not note any. We then used a pulse lavage
irrigation to irrigate 3 L of saline solution throughout this cavity. We then again inspected for any active bleeding and there was none. We confirmed hemostasis. I now brought a large round Simone drain out through a separate stab incision in the
skin (secured to the skin with a nylon stitch). This drain was placed into the fascial compartment overlying the muscle, and was looped such that it would drain the majority of the pocket that the hematoma had created within the compartment. The
subcutaneous tissues were closed with running 3-0 Vicryl deep dermal layer, and the skin was closed with a running 4-0 Monocryl subcuticular stitch. Dermabond was applied. Dressings were applied to the drain site. Patient tolerated the procedure
well.
--- NOTE | 2025-01-23 16:12 | PTCARENOTE ---
Recieved from OR in steretcher and pulled over to bed. Dressing with Alexi bandage intact CDI. EDDI drain with sanguineous drainage. + neurovascular checks.
--- NOTE | 2025-01-23 16:48 | CM ---
Met with patient at bedside; drowsy after procedure
Pharmacy verified; [facility] @ [address] [place] [address]
Lives alone; multilevel home; enters via Ramp
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
No SNF utilization history; Past Home Health services w/ [facility]
PT evaluation pending; will monitor for discharge needs
Daughter will provide transport home
Plan: Anticipate discharge to home; case management will monitor for needs
[2025-01-23] MEDS: OSCAL 500 + D 500 MG PO (21:16)
[2025-01-23 23:05] LABS: INR 1.04; PT 14.1 Sec (11.4-14.6)
[2025-01-24] VITALS (8 sets, daily range): BP systolic 106–150; BP diastolic 55–90
[2025-01-24 05:03] LABS: Hematocrit 21.8 % (37.0-47.0); Hemoglobin 7.1 g/dL (12.0-16.0); Mean Corp Hgb Conc. 32.6 g/dL (33.0-37.0); Mean Corpuscular Volume 94.0 fL (81.0-99.0); Platelet Count 201 10^3/uL (130-400); Red Cell Dist. Width 13.7 % (11.5-14.5)
[2025-01-24 05:14] LABS: Blood Urea Nitrogen 31 mg/dl (7-17); Calcium 8.3 mg/dl (8.4-10.2); Carbon Dioxide 29 mmol/L (22-30); Chloride 107 mmol/L (98-107); Estimated Creatinine Clearance 49 ml/min; Glucose 106 mg/dl (70-99); Magnesium 1.9 mg/dl (1.6-2.3); Potassium 4.3 mmol/L (3.5-5.1); Sodium 136 mmol/L (135-145); eGFR > 60.00
--- NOTE | 2025-01-24 06:53 | W.PN.UPDATE ---
Update Note
Progress Note Update
Blood consent obtained and placed in chart.
[2025-01-24 06:59] LABS: Hematocrit 22.6 % (37.0-47.0); Hemoglobin 7.6 g/dL (12.0-16.0)
--- NOTE | 2025-01-24 07:11 | W.PN.VS ---
Today's Communication / Plan
-
as above
Assessment/Plan
-
POD1 s/p hematoma evacuation
-Ok for OOB
-Continue BILLY wrap
-Continue EDDI
Subjective Data
-
Date of Service: January 24, 2025
No acute events. Patient having some incisional pain but feels pain/pressure overall improved
Objective Data
-
Vital Signs
Temp Pulse Resp BP Pulse Ox
97.6 F 74 16 106/60 95
01/24/25 03:00 01/24/25 03:00 01/24/25 03:00 01/24/25 03:00 01/24/25 03:00
Intake and Output
01/23/25 01/24/25 01/25/25
06:59 06:59 06:59
Intake Total 0 / 0 1250 / 1250
Output Total
Balance 0 / 0 1155 / 1155
Intake:
Oral fluids 0 / 0 240 / 240
IV fluids (Total) 1010 / 1010
NSS 50 / 50
Output:
Drain Output (Total)
Right Upper Leg Corey-Rosado
Other:
Number of approximated SMALL 1
amounts of urine
Number of approximated MODERATE 2
amounts of urine
Number of approximated LARGE 2
amounts of urine
Lab Results
01/24/25 06:44
01/24/25 04:24
Calcium 8.3 mg/dl (8.4-10.2) L 01/24/25 04:24
Magnesium 1.9 mg/dl (1.6-2.3) 01/24/25 04:24
Total Bilirubin 0.8 mg/dl (0.2-1.3) 01/22/25 20:15
AST 24 U/L (14-36) 01/22/25 20:15
ALT 19 U/L (0-35) 01/22/25 20:15
Alkaline Phosphatase 48 U/L (38-126) 01/22/25 20:15
Total Protein 6.8 g/dl (6.3-8.2) 01/22/25 20:15
Albumin 4.4 g/dl (3.5-5.0) 01/22/25 20:15
Physical Exam
-
NAD
Thigh soft
EDDI sang
[2025-01-24] MEDS: LR IV (09:43)
[2025-01-24] MEDS: LYRICA 50 MG PO (10:22)
[2025-01-24] MEDS: CYMBALTA DELAYED RELEASE 30 MG PO (10:22)
[2025-01-24] MEDS: VISBIOME 1 CAP PO (10:23)
[2025-01-24] MEDS: LIPITOR 40 MG PO (10:23)
[2025-01-24] MEDS: PROTONIX 40 MG PO (10:23)
[2025-01-24] MEDS: TOPROL XL 25 MG PO (10:23)
[2025-01-24] MEDS: CYMBALTA DELAYED RELEASE 60 MG PO (10:23)
[2025-01-24] MEDS: VITAMIN C 500 MG PO (10:23)
[2025-01-24] MEDS: LIORESAL 5 MG PO ×2 (10:23→20:17)
[2025-01-24] MEDS: TOPROL XL 50 MG PO (10:24)
--- NOTE | 2025-01-24 11:26 | W.PN.HOSP.TC ---
Today's Communication/Plan
-
see A/P
Assessment / Plan
Assessment / Plan
HPI: 79-year-old female with past medical history significant for hypertension, hyperlipidemia, paroxysmal atrial fibrillation, HFrEF, Rheumatoid arthritis, nonischemic cardiomyopathy, moderate mitral regurgitation, Hx uterine cancer and Hx breast
cancer; who presented with right thigh pain and edema. Patient reports that pain started approximately 5 days ago [employer] and has gotten significantly worse since onset and on DOA started with swelling.
She endorses nausea and vomiting on DOA.
A/P:
# right thigh pain and swelling
prelim CT showed moderate subcutaneous edema lateral right thigh with crescentic lateral compartment superficial muscle fascial crescentic mass suspicious for hematoma, measuring 3 cm transverse, 9.5 cm AP, and 20 cm in length. Few serpiginous foci
of hypoenhancement within superior aspect suspicious for active extravasation.
s/p hematoma evacuation 01/23 by vascular due to severe pain
Cont EDDI drain
Continue to hold anticoagulation.
PT eval post op
# Acute blood loss anemia following hematoma evacuation
Hgb dropped from 10 to 7.6,
transfuse 1 unit PRBC
# hypertension
continue metoprolol with hold parameter
# hyperlipidemia
continue atorvastatin
# paroxysmal atrial fibrillation
continue metoprolol with hold parameter
hold Eliquis
# HFrEF
# nonischemic cardiomyopathy
daily weights, I & Os
# Rheumatoid arthritis
continue pregabalin and duloxetine
# moderate mitral regurgitation
# Hx uterine cancer
# Hx breast cancer
Code status: DNR
DVT prophylaxis: SCDs
Anticipated Discharge: 24 - 48 hours
Subjective/Interval History
-
Date of Service: January 24, 2025
Objective Data
-
Labs:
Laboratory Results
01/24/25 01/24/25 01/24/25
04:24 04:25 06:44
WBC 10.0
Hgb 7.1 L D 7.6 L
Hct 21.8 L 22.6 L
Plt Count 201
Sodium 136
Potassium 4.3
Chloride 107
Carbon Dioxide 29
BUN 31 H
Creatinine 0.9
Glucose 106 H
Calcium 8.3 L
Vital Signs:
Vital Signs
Temp Pulse Resp BP Pulse Ox
37.1 C 72 16 150/60 97
01/24/25 10:46 01/24/25 10:46 01/24/25 10:46 01/24/25 10:46 01/24/25 07:57
I&O
01/23/25 01/24/25 01/25/25
06:59 06:59 06:59
Intake Total 0 / 0 1250 / 1250 0 / 0
Output Total 95 / 95
Balance 0 / 0 1155 / 1155 0 / 0
Review of Systems
-
History Source: Patient
Musculoskeletal: Reports Other (R thigh pain has improved )
Physical Exam
-
General: Well Developed, Well Nourished, No Apparent Distress, Comfortable and Conversant; Negative Respiratory Distress
HEENT: Normocephalic, Atraumatic, Nose Appears Normal and Ears Appear Normal; Negative Oxygen
Respiratory: Clear to Auscultation and Non Labored Respirations; Negative Accessory Resp Muscle Use
Cardiac: Regular Rhythm and S1/S2
GI: Soft, Nontender, Nondistended and Normal Bowel Sounds
Skin: Warm and Dry
Neuro: Awake and Alert
Psych: Calm and Intact Judgement/Insight
Data Reviewed
-
Labs: Labs Reviewed by me
[2025-01-24] MEDS: OSCAL 500 + D 500 MG PO (20:17)
[2025-01-25 04:54] LABS: Hematocrit 24.9 % (37.0-47.0); Hemoglobin 8.2 g/dL (12.0-16.0); Mean Corp Hgb Conc. 32.9 g/dL (33.0-37.0); Mean Corpuscular Volume 90.2 fL (81.0-99.0); Platelet Count 168 10^3/uL (130-400); Red Cell Dist. Width 16.3 % (11.5-14.5)
[2025-01-25 05:15] LABS: Blood Urea Nitrogen 30 mg/dl (7-17); Calcium 8.9 mg/dl (8.4-10.2); Carbon Dioxide 29 mmol/L (22-30); Chloride 107 mmol/L (98-107); Estimated Creatinine Clearance 44 ml/min; Glucose 90 mg/dl (70-99); Potassium 4.3 mmol/L (3.5-5.1); Sodium 136 mmol/L (135-145); eGFR 57.31
[2025-01-25 06:00] VITALS: BMI 30.3
[2025-01-25 07:12] VITALS: BP 150/66
[2025-01-25 09:10] VITALS: BMI 30.2
--- NOTE | 2025-01-25 09:26 | W.PN.HOSP.TC ---
Today's Communication/Plan
-
see A/P
Assessment / Plan
Assessment / Plan
HPI: 79-year-old female with past medical history significant for hypertension, hyperlipidemia, paroxysmal atrial fibrillation, HFrEF, Rheumatoid arthritis, nonischemic cardiomyopathy, moderate mitral regurgitation, Hx uterine cancer and Hx breast
cancer; who presented with right thigh pain and edema. 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
She endorses nausea and vomiting on DOA.
A/P:
# right thigh pain and swelling
prelim CT showed moderate subcutaneous edema lateral right thigh with crescentic lateral compartment superficial muscle fascial crescentic mass suspicious for hematoma, measuring 3 cm transverse, 9.5 cm AP, and 20 cm in length. Few serpiginous foci
of hypoenhancement within superior aspect suspicious for active extravasation.
s/p hematoma evacuation 01/23 by vascular due to severe pain
EDDI drain removed 01/25
Continue to hold anticoagulation. Monitor for bleeding
PT eval post op
# Acute blood loss anemia following hematoma evacuation
Hgb dropped from 10 to 7.6,
transfused 1 unit PRBC, Hgb improved to 8.2 today
# hypertension
continue metoprolol with hold parameter
# hyperlipidemia
continue atorvastatin
# paroxysmal atrial fibrillation
continue metoprolol with hold parameter
hold Eliquis
# HFrEF
# nonischemic cardiomyopathy
daily weights, I & Os
# Rheumatoid arthritis
continue pregabalin and duloxetine
# moderate mitral regurgitation
# Hx uterine cancer
# Hx breast cancer
Code status: DNR
DVT prophylaxis: SCDs
DW RN
Anticipated Discharge: 24 - 48 hours
Subjective/Interval History
-
Date of Service: January 25, 2025
Objective Data
-
Labs:
Laboratory Results
01/25/25
04:34
WBC 8.4
Hgb 8.2 L
Hct 24.9 L
Plt Count 168
Sodium 136
Potassium 4.3
Chloride 107
Carbon Dioxide 29
BUN 30 H
Creatinine 1.0
Glucose 90
Calcium 8.9
Vital Signs:
Vital Signs
Temp Pulse Resp BP Pulse Ox
36.9 C 78 16 150/66 97
01/25/25 07:12 01/25/25 07:12 01/25/25 07:12 01/25/25 07:12 01/25/25 07:12
I&O
01/24/25 01/25/25 01/26/25
06:59 06:59 06:59
Intake Total 1250 / 1250 1090 / 1090
Output Total 95 / 95 5 / 5
Balance 1155 / 1155 1085 / 1085
Review of Systems
-
History Source: Patient
Musculoskeletal: Reports Other (R thigh pain has improved )
Physical Exam
-
General: Well Developed, Well Nourished, No Apparent Distress, Comfortable and Conversant; Negative Respiratory Distress
HEENT: Normocephalic, Atraumatic, Nose Appears Normal and Ears Appear Normal; Negative Oxygen
Respiratory: Clear to Auscultation and Non Labored Respirations; Negative Accessory Resp Muscle Use
Cardiac: Regular Rhythm and S1/S2
GI: Soft, Nontender, Nondistended and Normal Bowel Sounds
Skin: Warm and Dry
Neuro: Awake and Alert
Psych: Calm and Intact Judgement/Insight
Data Reviewed
-
Labs: Labs Reviewed by me
--- NOTE | 2025-01-25 09:30 | W.PN.VS ---
Addendum entered and electronically signed by Nas Machado III, MD 01/25/25 10:15:
This patient was seen and examined in collaboration with HEMA Phillips. I agree with the history and physical exam as well as the assessment and plan. I have the following additions:
Right thigh soft
Incision clean and dry
EDDI removed
Okay to resume anticoagulation
PT evaluation
Out of bed, ambulate
Can follow-up with Dr. Gregorio in the office after discharge
Signed:
Nas Machado III, MD
Vascular Surgery
[facility]
Original Note:
Today's Communication / Plan
-
Patient seen and examined at bedside with Dr. Nas Machado III, below plan reviewed with attending.
Assessment/Plan
-
POD2 s/p hematoma evacuation
- Continue to encourage ambulation, consult PT
- EDDI drain removed
- From a vascular surgical respective okay to restart home oral anticoagulation
- Follow-up placed in discharge instructions
- Will sign off please call with questions or concerns
Subjective Data
-
Date of Service: January 25, 2025
Patient seen and examined at bedside, reports continued improvement in pain at right thigh hematoma site following surgery.
Objective Data
-
Vital Signs
Temp Pulse Resp BP Pulse Ox
98.5 F 78 16 150/66 97
01/25/25 07:12 01/25/25 07:12 01/25/25 07:12 01/25/25 07:12 01/25/25 07:12
Intake and Output
01/24/25 01/25/25 01/26/25
06:59 06:59 06:59
Intake Total 1250 / 1250 1090 / 1090
Output Total 95 / 95 5 / 5
Balance 1155 / 1155 1085 / 1085
Intake:
Oral fluids 240 / 240 840 / 840
IV fluids (Total) 1010 / 1010
NSS 50 / 50
Blood Product Amount Infused ( 250 / 250
mL)
Packed Rbc Leukoreduced Unit 250 / 250
[id number]
Output:
Drain Output (Total)
Right Upper Leg Corey-Rosado
Other:
How many times incontinent 1
SATURATED amount urine
Number of approximated SMALL 1
amounts of urine
Number of approximated MODERATE 2 1
amounts of urine
Number of approximated LARGE 2 2
amounts of urine
Lab Results
01/25/25 04:34
01/25/25 04:34
Calcium 8.9 mg/dl (8.4-10.2) 01/25/25 04:34
Magnesium 1.9 mg/dl (1.6-2.3) 01/24/25 04:24
Total Bilirubin 0.8 mg/dl (0.2-1.3) 01/22/25 20:15
AST 24 U/L (14-36) 01/22/25 20:15
ALT 19 U/L (0-35) 01/22/25 20:15
Alkaline Phosphatase 48 U/L (38-126) 01/22/25 20:15
Total Protein 6.8 g/dl (6.3-8.2) 01/22/25 20:15
Albumin 4.4 g/dl (3.5-5.0) 01/22/25 20:15
Physical Exam
-
NAD, resting bed comfortably
Right thigh soft
EDDI sang, minimal to no output
Right foot warm with palpable +2 DP pulse
[2025-01-25] MEDS: LYRICA 50 MG PO (09:31)
[2025-01-25] MEDS: PROTONIX 40 MG PO (09:31)
[2025-01-25] MEDS: LIPITOR 40 MG PO (09:31)
[2025-01-25] MEDS: CYMBALTA DELAYED RELEASE 30 MG PO (09:31)
[2025-01-25] MEDS: LIORESAL 5 MG PO ×2 (09:31→20:46)
[2025-01-25] MEDS: CYMBALTA DELAYED RELEASE 60 MG PO (09:31)
[2025-01-25] MEDS: VISBIOME 1 CAP PO (09:32)
[2025-01-25] MEDS: TOPROL XL 50 MG PO (09:32)
[2025-01-25] MEDS: TOPROL XL 25 MG PO (09:32)
[2025-01-25] MEDS: VITAMIN C 500 MG PO (09:32)
[2025-01-25] MEDS: FLUSH (NSS) 1 FLUSH IV (09:33)
--- NOTE | 2025-01-25 10:00 | PTCARENOTE ---
Made Dr. Murillo aware of increase in pt's weight from when it was checked on Tuesday (164 lbs). Weight was re done and was 170.3 lbs from [address] Murillo indicated to continue to monitor.
[2025-01-25 10:02] VITALS: PULSE 78; O2SAT 99
[2025-01-25] MEDS: ROXICODONE 5 MG PO ×2 (10:43→18:41)
--- NOTE | 2025-01-25 15:00 | PTCARENOTE ---
Pt's EDDI drain site of right thigh bled through dressing after working with PT and OOB to commode. Placed new dressing, scant drainage noted on new dressing. Made Dr. Murillo and Ashlie Alvarez SEROLOGIST from Vascular Surgery aware. Ashlie Alvarez indicated that if
she saturates through the dressing, to let the senior telecommunications specialist vascular provider aware, will continue to monitor.
[2025-01-25 15:43] VITALS: BP 139/59
--- NOTE | 2025-01-25 18:30 | PTCARENOTE ---
Pt's right thigh old drain site again had a moderate amount of bloody drainage, leaking through the dressing. Right thigh is soft, no hardness noted. Pt stating that she is having 6/10 pain of right thigh. See MAR. Pain increased with increased
mobility to the commode per pt. Reached out to Dr. Weber via TT to inform of pt's increased drainage from old drain site. Dr. Weber said to redress and place BILLY over dressing. Updated pt on plan and provided in report to customs compliance director RN.
[2025-01-25] MEDS: OSCAL 500 + D 500 MG PO (20:46)
[2025-01-25 23:55] VITALS: BP 148/87
[2025-01-26 06:00] VITALS: BMI 29.7
[2025-01-26 07:11] VITALS: BP 187/85
--- NOTE | 2025-01-26 07:39 | W.PN.VS ---
Today's Communication / Plan
-
as above
Assessment/Plan
-
POD3 s/p hematoma evacuation
- Continue to encourage ambulation, consult PT
- EDDI site with some drainage. Single nylon stitch placed.
- From a vascular surgical respective okay to restart home oral anticoagulation
- Follow-up placed in discharge instructions
Subjective Data
-
Date of Service: January 26, 2025
Patient with some oozing from drain site yesterday. No complaints today
Objective Data
-
Vital Signs
Temp Pulse Resp BP Pulse Ox
99.8 F 79 20 148/87 98
01/25/25 23:55 01/25/25 23:55 01/25/25 23:55 01/25/25 23:55 01/25/25 23:55
Intake and Output
01/25/25 01/26/25 01/27/25
06:59 06:59 06:59
Intake Total 1090 / 1090 480 / 480
Output Total 5 / 5
Balance 1085 / 1085 480 / 480
Intake:
Oral fluids 840 / 840 480 / 480
Blood Product Amount Infused ( 250 / 250
mL)
Packed Rbc Leukoreduced Unit 250 / 250
[id number]
Output:
Drain Output (Total) 5 /
Right Upper Leg Corey-Rosado 5 / 5
Other:
How many times incontinent 1 1
SATURATED amount urine
Number of approximated SMALL 1
amounts of urine
Number of approximated MODERATE 1 3 2
amounts of urine
Number of approximated LARGE 2
amounts of urine
Calcium 8.9 mg/dl (8.4-10.2) 01/25/25 04:34
Magnesium 1.9 mg/dl (1.6-2.3) 01/24/25 04:24
Total Bilirubin 0.8 mg/dl (0.2-1.3) 01/22/25 20:15
AST 24 U/L (14-36) 01/22/25 20:15
ALT 19 U/L (0-35) 01/22/25 20:15
Alkaline Phosphatase 48 U/L (38-126) 01/22/25 20:15
Total Protein 6.8 g/dl (6.3-8.2) 01/22/25 20:15
Albumin 4.4 g/dl (3.5-5.0) 01/22/25 20:15
Physical Exam
-
NAD
thigh soft
incision c/d/i
drain site with serous/serosang ooze
[2025-01-26] MEDS: PROTONIX 40 MG PO (08:04)
[2025-01-26] MEDS: CYMBALTA DELAYED RELEASE 30 MG PO (08:04)
[2025-01-26] MEDS: LIORESAL 5 MG PO ×2 (08:04→20:40)
[2025-01-26] MEDS: CYMBALTA DELAYED RELEASE 60 MG PO (08:04)
[2025-01-26] MEDS: VISBIOME 1 CAP PO (08:04)
[2025-01-26] MEDS: LYRICA 50 MG PO (08:04)
[2025-01-26] MEDS: LIPITOR 40 MG PO (08:04)
[2025-01-26] MEDS: VITAMIN C 500 MG PO (08:05)
[2025-01-26] MEDS: TOPROL XL 25 MG PO (08:05)
[2025-01-26] MEDS: TOPROL XL 50 MG PO (08:05)
[2025-01-26 08:11] VITALS: BP 187/85
[2025-01-26 08:18] LABS: Hematocrit 27.8 % (37.0-47.0); Hemoglobin 9.2 g/dL (12.0-16.0); Mean Corp Hgb Conc. 33.1 g/dL (33.0-37.0); Mean Corpuscular Volume 90.6 fL (81.0-99.0); Platelet Count 220 10^3/uL (130-400); Red Cell Dist. Width 15.4 % (11.5-14.5)
[2025-01-26 08:59] LABS: Blood Urea Nitrogen 22 mg/dl (7-17); Calcium 8.6 mg/dl (8.4-10.2); Carbon Dioxide 30 mmol/L (22-30); Chloride 103 mmol/L (98-107); Estimated Creatinine Clearance 64 ml/min; Glucose 92 mg/dl (70-99); Potassium 4.1 mmol/L (3.5-5.1); Sodium 134 mmol/L (135-145); eGFR > 60.00
--- NOTE | 2025-01-26 10:29 | W.PN.HOSP.TC ---
Today's Communication/Plan
-
see A/P
Assessment / Plan
Assessment / Plan
HPI: 79-year-old female with past medical history significant for hypertension, hyperlipidemia, paroxysmal atrial fibrillation, HFrEF, Rheumatoid arthritis, nonischemic cardiomyopathy, moderate mitral regurgitation, Hx uterine cancer and Hx breast
cancer; who presented with right thigh pain and edema. 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
She endorses nausea and vomiting on DOA.
A/P:
# right thigh pain and swelling
prelim CT showed moderate subcutaneous edema lateral right thigh with crescentic lateral compartment superficial muscle fascial crescentic mass suspicious for hematoma, measuring 3 cm transverse, 9.5 cm AP, and 20 cm in length. Few serpiginous foci
of hypoenhancement within superior aspect suspicious for active extravasation.
s/p hematoma evacuation 01/23 by vascular due to severe pain
EDDI drain removed 01/25
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
Resume Eliquis low dose 2.5 mg BID to start tonight 01/26.
Monitor for bleeding and Hgb.
PT eval recc SNF vs home PT. Pt elected SNF at [place]
# Acute blood loss anemia following hematoma evacuation
Hgb dropped from 10 to 7.6,
transfused 1 unit PRBC, Hgb improved to 9.2 today
# hypertension
continue metoprolol with hold parameter
# hyperlipidemia
continue atorvastatin
# paroxysmal atrial fibrillation
continue metoprolol with hold parameter
Ok to resume Eliquis
Resume Eliquis low dose 2.5 mg BID to start tonight 01/26.
# HFrEF
# nonischemic cardiomyopathy
daily weights, I & Os
# Rheumatoid arthritis
continue pregabalin and duloxetine
# moderate mitral regurgitation
# Hx uterine cancer
# Hx breast cancer
Code status: DNR
DVT prophylaxis: Resume Eliquis low dose 2.5 mg BID to start tonight 01/26.
Dispo: SNF
DW RN
DW CM
Anticipated Discharge: 24 - 48 hours
Subjective/Interval History
-
Date of Service: January 26, 2025
Objective Data
-
Labs:
Laboratory Results
01/26/25
07:42
WBC 9.5
Hgb 9.2 L
Hct 27.8 L
Plt Count 220 D
Sodium 134 L
Potassium 4.1
Chloride 103
Carbon Dioxide 30
BUN 22 H
Creatinine 0.7
Glucose 92
Calcium 8.6
Vital Signs:
Vital Signs
Temp Pulse Resp BP Pulse Ox
36.9 C 81 16 187/85 98
01/26/25 07:11 01/26/25 07:11 01/26/25 07:11 01/26/25 08:05 01/26/25 07:11
I&O
01/25/25 01/26/25 01/27/25
06:59 06:59 06:59
Intake Total 1090 / 1090 480 / 480
Output Total 5 / 5
Balance 1085 / 1085 480 / 480
Review of Systems
-
History Source: Patient
Musculoskeletal: Reports Other (R thigh pain has improved )
Physical Exam
-
General: Well Developed, Well Nourished, No Apparent Distress, Comfortable and Conversant; Negative Respiratory Distress
HEENT: Normocephalic, Atraumatic, Nose Appears Normal and Ears Appear Normal; Negative Oxygen
Respiratory: Clear to Auscultation and Non Labored Respirations; Negative Accessory Resp Muscle Use
Cardiac: Regular Rhythm and S1/S2
GI: Soft, Nontender, Nondistended and Normal Bowel Sounds
Skin: Warm and Dry
Neuro: Awake and Alert
Psych: Calm and Intact Judgement/Insight
Data Reviewed
-
Labs: Labs Reviewed by me
[2025-01-26] MEDS: ROXICODONE 5 MG PO ×3 (10:38→23:30)
[2025-01-26] MEDS: TYLENOL 650 MG PO (10:38)
[2025-01-26 15:00] VITALS: BP 113/51
--- NOTE | 2025-01-26 15:01 | CM ---
Met with pt and daughter bedside to discuss DC planning. They were given the medicare.gov 5-star compare documents for SNF near [place]. The will pick a total of 3 -5 facilities for referral. CM will place referrals once choices are received.
Plan: DC to SNF when bed is available
--- NOTE | 2025-01-26 19:50 | PTCARENOTE ---
Upon initial assessment, noted circular bruising on left knee. Client stated it was new and denied injury. Area marked to assess for growth. CANDY MAKER notified.
[2025-01-26] MEDS: ELIQUIS 2.5 MG PO (20:40)
[2025-01-26] MEDS: OSCAL 500 + D 500 MG PO (22:59)
[2025-01-26 23:50] VITALS: BP 97/57
[2025-01-27 00:32] VITALS: BMI 29.7
[2025-01-27 03:35] VITALS: BP 144/54
[2025-01-27] MEDS: ROXICODONE 5 MG PO ×2 (05:10→09:40)
[2025-01-27 07:56] LABS: Hematocrit 25.7 % (37.0-47.0); Hemoglobin 8.5 g/dL (12.0-16.0); Mean Corp Hgb Conc. 33.1 g/dL (33.0-37.0); Mean Corpuscular Volume 89.2 fL (81.0-99.0); Platelet Count 259 10^3/uL (130-400); Red Cell Dist. Width 15.2 % (11.5-14.5)
[2025-01-27 08:24] LABS: Blood Urea Nitrogen 19 mg/dl (7-17); Calcium 8.6 mg/dl (8.4-10.2); Carbon Dioxide 30 mmol/L (22-30); Chloride 101 mmol/L (98-107); Estimated Creatinine Clearance 64 ml/min; Glucose 101 mg/dl (70-99); Potassium 3.9 mmol/L (3.5-5.1); Sodium 132 mmol/L (135-145); eGFR > 60.00
--- NOTE | 2025-01-27 08:51 | W.PN.HOSP.TC ---
Today's Communication/Plan
-
see A/P
Assessment / Plan
Assessment / Plan
HPI: 79-year-old female with past medical history significant for hypertension, hyperlipidemia, paroxysmal atrial fibrillation, HFrEF, Rheumatoid arthritis, nonischemic cardiomyopathy, moderate mitral regurgitation, Hx uterine cancer and Hx breast
cancer; who presented with right thigh pain and edema. 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
She endorses nausea and vomiting on DOA.
A/P:
# right thigh pain and swelling
CT showed right thigh lateral compartment superficial muscle fascial hematoma, with suggestion of active extravasation at the superior margin.
s/p hematoma evacuation 01/23 by vascular due to severe pain
EDDI drain removed 01/25
OK to restart PRODUCTION FOREMAN anticoagulation per vacular.
Resume Eliquis low dose 2.5 mg BID on 01/26.
Monitor for bleeding and Hgb with resumption of Eliquis
PT recc SNF vs home PT. Pt elected SNF at [place]
# Acute blood loss anemia following hematoma evacuation
Hgb dropped from 10 to 7.6,
transfused 1 unit PRBC,
Hgb today at 8.5, cont to monitor
# hypertension
continue metoprolol with hold parameter
# hyperlipidemia
continue atorvastatin
# paroxysmal atrial fibrillation
continue metoprolol with hold parameter
resume Eliquis at 2.5 mg BID
# HFrEF
# nonischemic cardiomyopathy
daily weights, I & Os
# Rheumatoid arthritis
continue pregabalin and duloxetine
# moderate mitral regurgitation
# Hx uterine cancer
# Hx breast cancer
Code status: DNR
DVT prophylaxis: Resumed Eliquis at 2.5 mg BID
Dispo: SNF
Anticipated Discharge: Within 24 hours
Subjective/Interval History
-
Date of Service: January 27, 2025
Objective Data
-
Labs:
Laboratory Results
01/27/25
07:39
WBC 10.6
Hgb 8.5 L
Hct 25.7 L
Plt Count 259
Sodium 132 L
Potassium 3.9
Chloride 101
Carbon Dioxide 30
BUN 19 H
Creatinine 0.7
Glucose 101 H
Calcium 8.6
Vital Signs:
Vital Signs
Temp Pulse Resp BP Pulse Ox
36.7 C 86 20 144/54 96
01/27/25 03:35 01/27/25 03:35 01/27/25 03:35 01/27/25 03:35 01/27/25 03:35
I&O
01/26/25 01/27/25 01/28/25
06:59 06:59 06:59
Intake Total 480 / 480 680 / 680
Balance 480 / 480 680 / 680
Review of Systems
-
History Source: Patient
Musculoskeletal: Reports Other (R thigh pain has improved )
Physical Exam
-
General: Well Developed, Well Nourished, No Apparent Distress, Comfortable and Conversant; Negative Respiratory Distress
HEENT: Normocephalic, Atraumatic, Nose Appears Normal and Ears Appear Normal; Negative Oxygen
Respiratory: Clear to Auscultation and Non Labored Respirations; Negative Accessory Resp Muscle Use
Cardiac: Regular Rhythm and S1/S2
GI: Soft, Nontender, Nondistended and Normal Bowel Sounds
Skin: Warm and Dry
Neuro: Awake and Alert
Psych: Calm and Intact Judgement/Insight
Data Reviewed
-
Labs: Labs Reviewed by me and Discussed with Patient
[2025-01-27] MEDS: TOPROL XL 50 MG PO (09:29)
[2025-01-27] MEDS: LIORESAL 5 MG PO ×2 (09:29→22:52)
[2025-01-27] MEDS: VISBIOME 1 CAP PO (09:29)
[2025-01-27] MEDS: VITAMIN C 500 MG PO (09:29)
[2025-01-27] MEDS: LIPITOR 40 MG PO (09:29)
[2025-01-27] MEDS: TOPROL XL 25 MG PO (09:29)
[2025-01-27] MEDS: CYMBALTA DELAYED RELEASE 60 MG PO (09:29)
[2025-01-27] MEDS: PROTONIX 40 MG PO (09:29)
[2025-01-27] MEDS: CYMBALTA DELAYED RELEASE 30 MG PO (09:29)
[2025-01-27] MEDS: LYRICA 50 MG PO (09:32)
[2025-01-27] MEDS: ELIQUIS 2.5 MG PO ×2 (09:40→20:38)
--- NOTE | 2025-01-27 10:41 | CM ---
Addendum entered by Freda Montilla 01/27/25 10:57:
Pt also wants [facility] as their first Choice. Referral made
Original Note:
Reviewed chart and met with patient bedside. Family suggested [facility] as additional [facility]. Explained to pt that [facility] is not a good referral because they only accept residents into their skilled facility. Pt
is currently in too much pain to continue discussion.
Spoke with Dtr Shannan Gill and asked her to review the Medicare Compare document in the pt room and select 1 ot 2 more referral facilities
Plan: DC to SNF
[2025-01-27] MEDS: MORPHINE SULFATE 2 MG IV (11:05)
[2025-01-27 15:00] VITALS: BP 168/82
[2025-01-27] MEDS: TYLENOL 650 MG PO (16:13)
[2025-01-27] MEDS: APRESOLINE 10 MG IV (17:16)
--- NOTE | 2025-01-27 17:40 | W.PN.UPDATE ---
Update Note
Progress Note Update
I was called to the bedside by nursing as the patient's daughter was persistent on speaking with the physician. Concerned that her mother is more lethargic. I was immediately available at the bedside.
AFVSS. Patient comfortable in bed. Regular tachycardia on exam though otherwise benign, no FND or obvious CN deficits. Hemodynamically stable. ECG with sinus tachycardia, no acute ischemic change
The daughter is at the bedside and I asked what has her concerned. The daughter says 'she is different than she was on Thanksgiving'. When I ask how she states that she seems more lethargic. Discussed with nursing who states there is not been any
acute changes to her condition throughout the day, last received IV morphine for pain this morning.
Unclear etiology though possibly medication related with morphine, oxycodone, pregabalin, baclofen ordered per EMR. Will check CT head without contrast. Hold off on MRI as she does not appear to have focal deficits. Continue with neurochecks.
Consider de-escalating sedating agents though will defer to her primary hospitalist
[2025-01-27 18:35] VITALS: BP 161/74
--- NOTE | 2025-01-27 19:22 | PTCARENOTE ---
Received pt this AM. Pt AAOx3. Pt drowsy, flat, uninterested in conversation, refused breakfast. Pt reporting 8/10 pain in b/l shoulder and upper back. See Apr for PRN pain medication administration. Last dose of pain medication at 11:05 of 2mg
morphine IV. Pt daughter arrived around 16:15-30. Daughter stating that pt has had drastic change since night. Daughter admits that pts other daughter noted change on Tuesday. This RN attempted to explain that this is how patient has been
all day and there have been no acute changes. Pt able to move all extremities (weak), vascularly intact ( + pedals, <2 sec cap refill, + sensation in all extremities). Pt able to answer all orientation questions, oriented conversation. Only change
was pt had slight temperature of 99.4, pt was flushed and very warm to touch. Removed blankets, provided ice pack. Notified Dr. Murillo as well as vascular surgery. Pt daughter unhappy with this RN responses, stating that she needs 'an EKG, heart labs,
kidney labs' etc. Provided pt daughter with labs from this AM. Obtained verbal order for EKG, documented in chart. Daughter insisting on MD to come to bedside. Contacted cross coverage, Dr. Arellano. Dr. Arellano at bedside, heard daughters concerns and
placed order for head CT. Pt stood and used bedside commode with assistx2. Pt then placed back in bed, resting comfortably, family at bedside.
[2025-01-27 20:20] VITALS: BP 148/62
[2025-01-27 20:46] LABS: Glucose - Point of Care 114 mg/dl (70-99)
--- NOTE | 2025-01-27 20:54 | W.PN.UPDATE ---
Update Note
Progress Note Update
~ 19:30 Asked to see patient for more lethargy, patient w/increased HR. Daughters at bedside and state that mother is more lethargic than she was when they saw her on . Pt seen on dayshi by hospitalist, ordered Head CT, results show no
evidence of acute intracranial abnormality.
~ 20:30 Patient w/ history of afib, has been in NSR, EKG done, shows patient now in afib with RVR, HR 168. On evaluation, HR low 100's, goes into the 190's and drops right back down. Patient VS: BP 148/62, HR 103, Resp 20, Temp 101.8 rectal, blood
glucose 114.
Ordered Tylenol 1 g IV x 1 for fever.
Ordered CBC, BMP, blood cx, lactic acid, CXR, UA reflex to cx. COVID and Flu A&B, Awaiting results.
Labs: WBC 12.6, Hgb 9.1, Na 128, Lactic 0.8; UA negative for UTI; COVID negative; Flu A&B negative. Blood cultures pending. CXR report can not exclude subsegmental atelectasis and/or pneumonia. Will start on Zosyn for coverage of possible PNA.
~ 23:00 RN reported fever broke, temp 97.8. Patient is doing much better, patient is now talkative and alert, back to baseline. HR in 70-80's, does occasionally go up to 170-180's but returns to 70-80's right away, on quality assurance monitor back in NSR.
Cardiology consulted, CBC, Dr. Esteves chief station engineer.
[2025-01-27] MEDS: OFIRMEV 100 IV (20:55)
[2025-01-27 21:43] VITALS: BP 119/55
[2025-01-27 21:43] LABS: Hematocrit 27.3 % (37.0-47.0); Hemoglobin 9.1 g/dL (12.0-16.0); Mean Corp Hgb Conc. 33.3 g/dL (33.0-37.0); Mean Corpuscular Volume 87.8 fL (81.0-99.0); Nucleated Red Blood Cells % 0 %; Platelet Count 316 10^3/uL (130-400); Red Cell Dist. Width 14.8 % (11.5-14.5)
[2025-01-27 21:49] LABS: Blood Urea Nitrogen 16 mg/dl (7-17); Calcium 8.7 mg/dl (8.4-10.2); Carbon Dioxide 31 mmol/L (22-30); Chloride 95 mmol/L (98-107); Estimated Creatinine Clearance 56 ml/min; Glucose 104 mg/dl (70-99); Potassium 4.0 mmol/L (3.5-5.1); Sodium 128 mmol/L (135-145); eGFR > 60.00
--- NOTE | 2025-01-27 22:00 | PTCARENOTE ---
Received pt at changed of shift, pt drowsy, withdrawn, flat affect. Family at bedside. Pt sent for CT head. Upon return NIH completed-11, due to overall weakness and pain in all extremities. Daughter stating this is not abnormal due to her RA
pain. Vital signs taken BP 148/62 HR 103-120s temp 98.4- pt warm to touch. EKG completed, pt placed on telemetry HR 100s frequently going up to 180s. [place] CREATIVE COORDINATOR aware, to floor to evaluate. Rectal temp 101.8- pt given IV offirmev, CXR, urine culture,
blood cultures sent, labs sent, flu and covid negative. HR improved 70s NSR with PACs, pts mentation improved, talking and joking with RN. YONATAN. Francisco CREATIVE COORDINATOR aware.
[2025-01-27 22:26] LABS: Urine Character Clear (Clear)
[2025-01-27 22:37] LABS: Urine Red Blood Cell 0-2 /HPF (0-2)
[2025-01-27 22:38] LABS: COVID-19 Antigen Negative (Negative)
[2025-01-27] MEDS: OSCAL 500 + D 500 MG PO (22:52)
[2025-01-27 23:29] VITALS: BP 103/48
[2025-01-28 03:13] VITALS: BP 119/51
[2025-01-28] MEDS: ZOSYN 50 IV ×3 (05:36→18:04)
[2025-01-28] MEDS: ROXICODONE 5 MG PO (05:44)
[2025-01-28 06:00] VITALS: BMI 29.1
[2025-01-28 07:20] VITALS: BP 129/53
--- NOTE | 2025-01-28 07:58 | CON.CAR ---
Addendum entered and electronically signed by Lazaro Jeter MD 01/28/25 11:31:
D/w Dr. Monsivais, will increase to full dose anticoagulation (apix 5 BID). 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
Original Note:
Consultation
Consultation Request
Date/Time Consultation Requested: 01/28/25 0150
Date/Time Consultation Performed: 01/28/25 7288
Requesting Provider: Lorena Dorman NP
Performing Provider: Sarah GARRIDO for Dr. Jeter
Reason for Consultation: AFIB with RVR
Medical History
-
Chief Complaint: right thigh pain and swelling
History of Present Illness:
79 y/o female (patient of Dr. Monsivais) with PAF on Eliquis, PAT, PAC's, aortic valve sclerosis, dyslipidemia, hypertension, rheumatoid arthritis, and resolved NICM/HFimpEF who presented 01/22/25 with reports of RLE pain and swelling. No noted trauma.
She was seen to have a hematoma and is s/p evacuation 01/23/25. In this setting, she had anemia and is s/p 1 unit PRBCs. Eliquis was held, but has been resumed at lower dosing. We are consulted due to paroxysms of atrial tachycardia (versus brief
AFIB) with fast rates. She is not symptomatic with this. At the time of my assessment, she is in SR and is in no distress. Fever was noted last night as well.
Past Medical History
Past Medical History: Arrhythmias, Cancer, CHF, HTN, Hypercholesterolemia and Other
Social History
Tobacco: Non-Smoker
Family History
Family History: CAD
Allergies / Home Medications
Allergy/AdvReac Type Severity Reaction Status Date / Time
Sulfa (Sulfonamide Allergy Hives Verified 01/22/25 21:08
Antibiotics)
�Medication �Instructions �Recorded �Confirmed �Type
Lactobac no.2-Bifidobac no.1-S. 1 cap PO DAILY PROBIOTIC 11/30/19 01/22/25 History
thermo 112.5 billion cell capsule
(High Potency Probiotic)
calcium 600 mg (as carbonate)-vit 1 tab PO HS Supplement 06/21/20 01/22/25 History
D3 20 mcg (800 unit) chewable
tablet (Caltrate plus D)
ascorbic acid (vitamin C) 500 mg 500 mg PO DAILY Supplement 12/29/20 01/22/25 History
tablet (Vitamin C)
atorvastatin 40 mg tablet 40 mg PO DAILY High cholesterol 12/29/20 01/22/25 History
omeprazole 20 mg delayed 20 mg PO DAILY Gastrointestinal 12/29/20 01/22/25 History
release,disintegrating tablet issue
baclofen 5 mg tablet 5 mg PO BID 01/22/25 01/22/25 History
duloxetine 30 mg capsule,delayed 30 mg PO DAILY 01/22/25 01/22/25 History
release
duloxetine 60 mg capsule,delayed 60 mg PO DAILY 01/22/25 01/22/25 History
release
metoprolol succinate 25 mg 25 mg PO DAILY 01/22/25 01/22/25 History
tablet,extended release 24 hr
metoprolol succinate 50 mg 50 mg PO DAILY 01/22/25 01/22/25 History
tablet,extended release 24 hr
prednisone 10 mg tablet 10 mg PO DAILY 01/22/25 01/22/25 History
pregabalin 50 mg capsule 50 mg PO DAILY 01/22/25 01/22/25 History
Review of Systems
-
History Source: Patient
All other systems: Negative unless noted
Musculoskeletal: Edema (RLE pain and edema, improved s/p evacuation)
Physical Exam
Vital Signs
Temp Pulse Resp BP Pulse Ox
97.3 F 75 16 119/51 96
01/28/25 03:13 01/28/25 03:13 01/28/25 03:13 01/28/25 03:13 01/28/25 03:13
Physical Exam
General: Well Developed, Well Nourished and No Apparent Distress
HEENT: Normocephalic and Anicteric
Respiratory: Clear and Non Labored Respirations
Cardiac: Regular Rhythm
Musculoskeletal: Edema (mild BLE edema)
Skin: Warm and Dry
Neuro: Awake and Alert
Psych: Calm
Impression / Plan
-
RLE hematoma s/p evacuation:
-denies any known trauma to site
-anemia was noted with hgb as low as 7.6- transfused unit PRBC, hgb has stabilized as above- monitor
-Eliquis was held, but now resumed. Will discuss case with peanut sheller since it sounds like she had a spontaneous hematoma. However, if she is going to remain on this would increase to correct dose (5 mg PO BID) based on age, weight, creatinine.
PAF on Eliquis, atrial tachycardia:
-currently in SR, but overnight had short paroxysms of AT- asymptomatic, in setting of acute illness (fever overnight- see below)
-continue metoprolol. If becomes bigger issue (more frequent, symptomatic despite treating underlying illness), can increase dosing, but will leave current dosing for now.
-On Eliquis- see notes above
-of note, formerly on amiodarone, but stopped in [address] Monsivais's most recent office note should be avoided
Fever, elevated WBC:
-w/u and management per primary team
-possible PNA on CXR and abx have been ordered- denies SOB, lungs clear this AM
Chronic HFimpEF, hx NICM:
-last echo 2022: Borderline inferior hypokinesis with overall preserved LV systolic function with EF 55-60%. MAC/trace MR. Aortic sclerosis
-appears euvolemic
-on BB
Hyponatremia:
-labs pending this AM
-management per primary
Data Reviewed
-
EKG: Tracing Personally Visualized and interpreted
CT Scan: Report Reviewed by me (lower extremity: Findings most consistent with right thigh lateral compartment superficial muscle fascial hematoma, with suggestion of active extravasation at the superior margin. Advanced progressive arthritic
changes at the right hip joint, as described.)
Labs: Labs Reviewed by me
[2025-01-28] MEDS: LIPITOR 40 MG PO (08:30)
[2025-01-28] MEDS: CYMBALTA DELAYED RELEASE 60 MG PO (08:30)
[2025-01-28] MEDS: VISBIOME 1 CAP PO (08:30)
[2025-01-28] MEDS: VITAMIN C 500 MG PO (08:31)
[2025-01-28] MEDS: PROTONIX 40 MG PO (08:31)
[2025-01-28] MEDS: ELIQUIS 2.5 MG PO (08:31)
[2025-01-28] MEDS: LYRICA 50 MG PO (08:31)
[2025-01-28] MEDS: TOPROL XL 50 MG PO (08:31)
[2025-01-28] MEDS: TOPROL XL 25 MG PO (08:31)
[2025-01-28] MEDS: CYMBALTA DELAYED RELEASE 30 MG PO (08:31)
[2025-01-28] MEDS: LIORESAL 5 MG PO ×2 (08:31→20:11)
[2025-01-28] MEDS: TYLENOL 650 MG PO (08:34)
--- NOTE | 2025-01-28 09:01 | W.PN.HOSP.TC ---
Today's Communication/Plan
-
follow cards recs
IV Zosyn for possible PNA
Hyponatremia workup; await AM labs. May need IVF
de-escalate pain meds
d/w daughter
Assessment / Plan
Assessment / Plan
HPI: 79-year-old female with past medical history significant for hypertension, hyperlipidemia, paroxysmal atrial fibrillation, HFrEF, Rheumatoid arthritis, nonischemic cardiomyopathy, moderate mitral regurgitation, Hx uterine cancer and Hx breast
cancer; who presented with right thigh pain and edema. 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
She endorses nausea and vomiting on DOA.
Assessment:
R thigh pain and swelling
- CT: right thigh lateral compartment superficial muscle fascial hematoma, with suggestion of active extravasation at the superior margin
- Vascular evaluated; s/p hematoma evacuation 01/23
- EDDI removed 01/25
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 Hb stable
- PT/OT - SNF recommended
Possible LLL PNA
- possible aspiration given lethargy 24 hours prior; ST evaluation
- empiric Zosyn, day 1
- monitor O2 needs; none currently
Lethargy, acute encephalopsy on 01/27
- monitor mentation
Acute blood loss anemia, exacerbated by Eliquis - in setting of Hematoma formation/evacuation
- s/p 1 unit PRBC; Hb 9.1 most recently
Acute hyponatremia
- check hyponatremia workup
- await AM BMP
RAD - resolved
Essential HTN
- continue BB
Parox A. Fib
- RVR overnight 01/27 into 01/28
- continue BB
- continue Eliquis
- Cards consulted
Chronic HFrEF
nonischemic cardiomyopathy
- monitor I/Os, weights, lytes
RA
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
moderate mitral regurgitation
Hx uterine cancer
Hx breast cancer
Code status: DNR/DNI
DVT prophylaxis: Eliquis
Anticipated Discharge: > 48 hours
Subjective/Interval History
-
Date of Service: January 28, 2025
Noted events of 01/27 including lethargy
this AM, patient able to state that she is slightly SOB, is alert to her name, age, and location
reports remembering she felt unwell yesterday; feels like it could be due to medications
Objective Data
-
Labs:
Laboratory Results
01/27/25 01/28/25
21:23 06:00
WBC 12.6 H Pending
Hgb 9.1 L Pending
Hct 27.3 L Pending
Plt Count 316 D Pending
Sodium 128 L Pending
Potassium 4.0 Pending
Chloride 95 L Pending
Carbon Dioxide 31 H Pending
BUN 16 Pending
Creatinine 0.8 Pending
Glucose 104 H Pending
Calcium 8.7 Pending
Vital Signs:
Vital Signs
Temp Pulse Resp BP Pulse Ox
97.9 F 71 18 129/53 95
01/28/25 07:20 01/28/25 07:20 01/28/25 07:20 01/28/25 07:20 01/28/25 07:20
I&O
01/27/25 01/28/25 01/29/25
06:59 06:59 06:59
Intake Total 680 / 680 480 / 480
Balance 680 / 680 480 / 480
Physical Exam
-
General: No Apparent Distress
HEENT: Normocephalic and Atraumatic
Respiratory: Rhonchi (mild LLL); Negative Wheezes
Cardiac: Regular Rhythm and S1/S2
GI: Soft
Neuro: AO x 3
Psych: Calm
Data Reviewed
-
Total Time Spent with Patient (in minutes): 42
Labs: Labs Reviewed by me
[2025-01-28 10:05] LABS: Hematocrit 26.6 % (37.0-47.0); Hemoglobin 8.8 g/dL (12.0-16.0); Mean Corp Hgb Conc. 33.1 g/dL (33.0-37.0); Mean Corpuscular Volume 89.6 fL (81.0-99.0); Platelet Count 303 10^3/uL (130-400); Red Cell Dist. Width 14.7 % (11.5-14.5)
[2025-01-28 10:36] LABS: Blood Urea Nitrogen 19 mg/dl (7-17); Calcium 9.0 mg/dl (8.4-10.2); Carbon Dioxide 32 mmol/L (22-30); Chloride 99 mmol/L (98-107); Estimated Creatinine Clearance 55 ml/min; Glucose 86 mg/dl (70-99); Potassium 4.0 mmol/L (3.5-5.1); Sodium 134 mmol/L (135-145); eGFR > 60.00
[2025-01-28 11:14] VITALS: BP 127/64
--- NOTE | 2025-01-28 11:31 | CM ---
Patient seen bedside.
Appears weak, IV anbx continued.
PT recommending skilled rehab, referrals pending.
Patient would like home with daughter, but agrees to SNF at this time.
Plan: skilled rehab once medically stable.
[2025-01-28 15:20] VITALS: BP 102/47
[2025-01-28 19:58] VITALS: BP 116/57
[2025-01-28] MEDS: ROXICODONE 2.5 MG PO (20:10)
[2025-01-28] MEDS: OSCAL 500 + D 500 MG PO (20:11)
[2025-01-28] MEDS: ELIQUIS 5 MG PO (20:11)
[2025-01-28 23:00] VITALS: BP 103/51
[2025-01-29] VITALS (11 sets, daily range): BP systolic 114–160; BP diastolic 54–80; BMI 29.2
[2025-01-29] MEDS: ZOSYN 50 IV ×4 (00:11→20:01)
[2025-01-29 07:29] LABS: Hematocrit 24.4 % (37.0-47.0); Hemoglobin 7.9 g/dL (12.0-16.0); Mean Corp Hgb Conc. 32.4 g/dL (33.0-37.0); Mean Corpuscular Volume 90.0 fL (81.0-99.0); Platelet Count 340 10^3/uL (130-400); Red Cell Dist. Width 14.5 % (11.5-14.5)
[2025-01-29 07:53] LABS: Blood Urea Nitrogen 21 mg/dl (7-17); Calcium 8.9 mg/dl (8.4-10.2); Carbon Dioxide 31 mmol/L (22-30); Chloride 99 mmol/L (98-107); Estimated Creatinine Clearance 44 ml/min; Glucose 89 mg/dl (70-99); Potassium 3.7 mmol/L (3.5-5.1); Sodium 133 mmol/L (135-145); eGFR 57.31
[2025-01-29 08:21] LABS: Cortisol, Random 22.7 ug/dl
[2025-01-29] MEDS: LIPITOR 40 MG PO (09:14)
[2025-01-29] MEDS: LYRICA 50 MG PO (09:14)
[2025-01-29] MEDS: VISBIOME 1 CAP PO (09:14)
[2025-01-29] MEDS: CYMBALTA DELAYED RELEASE 60 MG PO (09:15)
[2025-01-29] MEDS: PROTONIX 40 MG PO (09:15)
[2025-01-29] MEDS: TOPROL XL 50 MG PO (09:15)
[2025-01-29] MEDS: LIORESAL 5 MG PO ×2 (09:15→20:02)
[2025-01-29] MEDS: CYMBALTA DELAYED RELEASE 30 MG PO (09:15)
[2025-01-29] MEDS: VITAMIN C 500 MG PO (09:16)
[2025-01-29] MEDS: TOPROL XL 25 MG PO (09:16)
[2025-01-29] MEDS: SENOKOT 8.6 MG PO ×2 (09:35→20:03)
[2025-01-29] MEDS: MIRALAX 17 GRAMS PO (09:36)
[2025-01-29] MEDS: ELIQUIS 5 MG PO ×2 (10:19→20:03)
[2025-01-29] MEDS: ROXICODONE 2.5 MG PO (10:23)
--- NOTE | 2025-01-29 11:41 | W.PN.UPDATE ---
Update Note
Progress Note Update
Asked to re-evaluate RLE thigh hematoma site, given recent scant drift in hemoglobin from 8.8 to 7.9. Patient easily arousable, in no apparent distress, continues to report well managed post operative pain at RLE leg. Denies any sensation of
increased swelling, pain, or bleeding at RLE. RLE thigh soft, all compartments soft, no evidence of reaccumulation of hematoma, surgical incision with exofin glue intact, and suture line well approximated. Prior EDDI removal drain site with clean,dry,
and intact suture no evidence of bleeding. Will provide update to vascular attending, currently no further recommendations. Follow up in discharge instructions.
--- NOTE | 2025-01-29 13:31 | W.PN.HOSP.TC ---
Today's Communication/Plan
-
1 unit PRBC
appreciate vascular input
dc planning to SNF in 24-48 hours likely
Assessment / Plan
Assessment / Plan
HPI: 79-year-old female with past medical history significant for hypertension, hyperlipidemia, paroxysmal atrial fibrillation, HFrEF, Rheumatoid arthritis, nonischemic cardiomyopathy, moderate mitral regurgitation, Hx uterine cancer and Hx breast
cancer; who presented with right thigh pain and edema. 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
She endorses nausea and vomiting on DOA.
Assessment:
R thigh pain and swelling
- CT: right thigh lateral compartment superficial muscle fascial hematoma, with suggestion of active extravasation at the superior margin
- Vascular evaluated; s/p hematoma evacuation 01/23. Vascular re-evaluated 01/29 and no concerns
- EDDI removed 01/25
- resumed on Eliquis (reported MAT TESTER but not on home med list) at 5 mg BID. Hb stable
- PT/OT - SNF recommended
Possible LLL PNA
- possible aspiration given lethargy 24 hours prior; ST evaluation
- empiric Zosyn, day 04/04
- monitor O2 needs; none currently
Lethargy, acute encephalopathy on 01/27
- monitor mentation; improving
Acute blood loss anemia, exacerbated by Eliquis - in setting of Hematoma formation/evacuation
- s/p 1 unit PRBC; Hb 7.9, additional 1 unit ordered.
Acute hyponatremia
- follow BMP
RAD - resolved
Essential HTN
- continue BB
Parox A. Fib
- RVR overnight 01/27 into 01/28
- continue BB
- continue Eliquis
- Cards following
Chronic HFrEF
nonischemic cardiomyopathy
- monitor I/Os, weights, lytes
RA
- on MAT TESTER Pregabalin and duloxetine
moderate mitral regurgitation
Hx uterine cancer
Hx breast cancer
Code status: DNR/DNI
DVT prophylaxis: Eliquis
Anticipated Discharge: 24 - 48 hours
Subjective/Interval History
-
Date of Service: January 29, 2025
mentation continues to improve
Hb 7.9; patient reports some weakness and agreeable to 1 unit PRBC today
Objective Data
-
Labs:
Laboratory Results
01/29/25
06:48
WBC 9.0
Hgb 7.9 L
Hct 24.4 L
Plt Count 340
Sodium 133 L
Potassium 3.7
Chloride 99
Carbon Dioxide 31 H
BUN 21 H
Creatinine 1.0
Glucose 89
Calcium 8.9
Vital Signs:
Vital Signs
Temp Pulse Resp BP Pulse Ox
98 F 80 18 114/59 97
01/29/25 11:17 01/29/25 11:17 01/29/25 11:17 01/29/25 11:17 01/29/25 13:13
I&O
01/28/25 01/29/25 01/30/25
06:59 06:59 06:59
Intake Total 480 / 480 960 / 960 560 / 560
Output Total 600 / 600
Balance 480 / 480 360 / 360 560 / 560
Physical Exam
-
General: No Apparent Distress
HEENT: Normocephalic and Atraumatic
Respiratory: Negative Wheezes
Cardiac: Regular Rhythm and S1/S2
GI: Soft
Genito-urinary: No Costovertebral Tender
Musculoskeletal: Other (RLE thigh soft, all compartments soft, no evidence of reaccumulation of hematoma, surgical incision with exofin glue intact, and suture line well approximated)
Neuro: AO x 3
Psych: Calm
Data Reviewed
-
Total Time Spent with Patient (in minutes): 42
Labs: Labs Reviewed by me
--- NOTE | 2025-01-29 15:05 | PTOTSP ---
Dysphagia Evaluation:
Pt presenting w/ R thigh hematoma and LLL PNA. Given no reports of difficulty at current diet level, no overt s/sx of aspiration observed during bedside swallow evaluation, no hx of dysphagia, 01/[address] negative for acute intracranial
abnormality, WBC WNL, and pt is on room air, it is recommended that pt continues at Regulars, Thins diet. Reconsult w/ ST if change in diet level tolerance or pt presentation.
Recommendations:
1. Regulars, Thins
2. Medications as best tolerated (suggest w/ puree given pt report of difficulty w/ medications)
3. Partial assistance w/ meal set up
4. General aspiration precautions, reflux precautions
5. ST to sign off. Reconsult if change in diet level tolerance or pt presentation.
[2025-01-29] MEDS: TYLENOL 650 MG PO (16:04)
[2025-01-29] MEDS: OSCAL 500 + D 500 MG PO (20:03)
[2025-01-30] VITALS (8 sets, daily range): BP systolic 120–163; BP diastolic 57–85; PULSE 76; O2SAT 96
[2025-01-30] MEDS: ZOSYN 50 IV ×2 (00:58→06:05)
[2025-01-30] MEDS: ROXICODONE 2.5 MG PO ×3 (07:46→20:00)
[2025-01-30] MEDS: CYMBALTA DELAYED RELEASE 30 MG PO (07:47)
[2025-01-30] MEDS: LIORESAL 5 MG PO ×2 (07:47→19:50)
[2025-01-30] MEDS: PROTONIX 40 MG PO (07:47)
[2025-01-30] MEDS: CYMBALTA DELAYED RELEASE 60 MG PO (07:48)
[2025-01-30] MEDS: TOPROL XL 50 MG PO (07:48)
[2025-01-30] MEDS: ELIQUIS 5 MG PO ×2 (07:48→19:50)
[2025-01-30] MEDS: SENOKOT 8.6 MG PO ×2 (07:48→19:50)
[2025-01-30] MEDS: TOPROL XL 25 MG PO (07:48)
[2025-01-30] MEDS: LYRICA 50 MG PO (07:48)
[2025-01-30] MEDS: VITAMIN C 500 MG PO (07:48)
[2025-01-30] MEDS: LIPITOR 40 MG PO (07:48)
[2025-01-30] MEDS: VISBIOME 1 CAP PO (07:48)
[2025-01-30 07:54] LABS: Hematocrit 26.6 % (37.0-47.0); Hemoglobin 9.1 g/dL (12.0-16.0); Mean Corp Hgb Conc. 34.2 g/dL (33.0-37.0); Mean Corpuscular Volume 88.1 fL (81.0-99.0); Platelet Count 360 10^3/uL (130-400); Red Cell Dist. Width 14.4 % (11.5-14.5)
[2025-01-30 08:36] LABS: Blood Urea Nitrogen 18 mg/dl (7-17); Calcium 8.6 mg/dl (8.4-10.2); Carbon Dioxide 28 mmol/L (22-30); Chloride 99 mmol/L (98-107); Estimated Creatinine Clearance 49 ml/min; Glucose 88 mg/dl (70-99); Potassium 3.7 mmol/L (3.5-5.1); Sodium 134 mmol/L (135-145); eGFR > 60.00
[2025-01-30] MEDS: TYLENOL 650 MG PO (09:04)
[2025-01-30] MEDS: MIRALAX PO (09:04)
--- NOTE | 2025-01-30 09:16 | W.PN.HOSP.TC ---
Today's Communication/Plan
-
Medically stable for DC to SNF pending bed/auth
Assessment / Plan
Assessment / Plan
HPI: 79-year-old female with past medical history significant for hypertension, hyperlipidemia, paroxysmal atrial fibrillation, HFrEF, Rheumatoid arthritis, nonischemic cardiomyopathy, moderate mitral regurgitation, Hx uterine cancer and Hx breast
cancer; who presented with right thigh pain and edema. 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
She endorses nausea and vomiting on DOA.
Assessment:
R thigh pain and swelling
- CT: right thigh lateral compartment superficial muscle fascial hematoma, with suggestion of active extravasation at the superior margin
- Vascular evaluated; s/p hematoma evacuation 01/23. Vascular re-evaluated 01/29 and no concerns
- EDDI removed 01/25
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 Hb stable
- PT/OT - SNF recommended
Possible LLL PNA
- possible aspiration given lethargy 24 hours prior; ST evaluation passed
- continue Augmentin, day 05/02
- monitor O2 needs; none currently
Lethargy, acute encephalopathy on 01/27
- monitor mentation; improving
Acute blood loss anemia, exacerbated by Eliquis - in setting of Hematoma formation/evacuation
- s/p 2 unit PRBC; Hb 9.1.
Acute hyponatremia
- follow BMP
RAD - resolved
Essential HTN
- continue BB
Parox A. Fib
- RVR overnight 01/27 into 01/28
- continue BB
- continue Eliquis
- Cards following
Chronic HFrEF
nonischemic cardiomyopathy
- monitor I/Os, weights, lytes
RA
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
moderate mitral regurgitation
Hx uterine cancer
Hx breast cancer
Code status: DNR/DNI
DVT prophylaxis: Eliquis
Anticipated Discharge: 24 - 48 hours
Subjective/Interval History
-
Date of Service: January 30, 2025
reports chronic pain
fatigue improved after transfusion
Objective Data
-
Labs:
Laboratory Results
01/30/25
06:51
WBC 8.2
Hgb 9.1 L
Hct 26.6 L
Plt Count 360
Sodium 134 L
Potassium 3.7
Chloride 99
Carbon Dioxide 28
BUN 18 H
Creatinine 0.9
Glucose 88
Calcium 8.6
Vital Signs:
Vital Signs
Temp Pulse Resp BP Pulse Ox
98.1 F 85 16 163/83 96
01/30/25 07:10 01/30/25 07:48 01/30/25 07:10 01/30/25 07:48 01/30/25 07:10
I&O
01/29/25 01/30/25 01/31/25
06:59 06:59 06:59
Intake Total 960 / 960 1530 / 1530
Output Total 600 / 600
Balance 360 / 360 1530 / 1530
Physical Exam
-
General: No Apparent Distress
HEENT: Normocephalic and Atraumatic
Respiratory: Negative Wheezes
Cardiac: Regular Rhythm and S1/S2
GI: Soft
Neuro: AO x 3
Psych: Calm
Data Reviewed
-
Total Time Spent with Patient (in minutes): 42
Labs: Labs Reviewed by me
--- NOTE | 2025-01-30 09:49 | CM ---
Addendum entered by Freda Montilla 01/30/25 10:09:
Met with pt bedside and reviewed list of SNF referral. She stated she does not want to go to [facility]. IMM given and placed on chart
Original Note:
Spoke with Shannan flores, and obtained additional SNF referrals; [facility] and [facility] referrals are pending
Plan: DC to SNF when bed available.
[2025-01-30] MEDS: AUGMENTIN 875 MG/125 MG 1 TABLET PO ×2 (10:13→19:50)
[2025-01-30] MEDS: OSCAL 500 + D 500 MG PO (19:50)
[2025-01-31] MEDS: ROXICODONE 2.5 MG PO ×2 (02:49→08:51)
[2025-01-31 03:40] VITALS: BP 150/87
[2025-01-31 07:49] VITALS: BP 140/71
[2025-01-31 08:15] LABS: Hematocrit 26.8 % (37.0-47.0); Hemoglobin 9.0 g/dL (12.0-16.0); Mean Corp Hgb Conc. 33.6 g/dL (33.0-37.0); Mean Corpuscular Volume 86.7 fL (81.0-99.0); Platelet Count 419 10^3/uL (130-400); Red Cell Dist. Width 14.6 % (11.5-14.5)
[2025-01-31 08:48] LABS: Blood Urea Nitrogen 14 mg/dl (7-17); Calcium 8.8 mg/dl (8.4-10.2); Carbon Dioxide 29 mmol/L (22-30); Chloride 100 mmol/L (98-107); Estimated Creatinine Clearance 55 ml/min; Glucose 92 mg/dl (70-99); Potassium 3.7 mmol/L (3.5-5.1); Sodium 134 mmol/L (135-145); eGFR > 60.00
[2025-01-31] MEDS: VITAMIN C 500 MG PO (08:50)
[2025-01-31] MEDS: TOPROL XL 25 MG PO (08:50)
[2025-01-31] MEDS: LYRICA 50 MG PO (08:50)
[2025-01-31] MEDS: SENOKOT 8.6 MG PO (08:50)
[2025-01-31] MEDS: LIPITOR 40 MG PO (08:50)
[2025-01-31] MEDS: CYMBALTA DELAYED RELEASE 60 MG PO (08:51)
[2025-01-31] MEDS: CYMBALTA DELAYED RELEASE 30 MG PO (08:51)
[2025-01-31] MEDS: VISBIOME 1 CAP PO (08:51)
[2025-01-31] MEDS: TOPROL XL 50 MG PO (08:51)
[2025-01-31] MEDS: PROTONIX 40 MG PO (08:51)
[2025-01-31] MEDS: LIORESAL 5 MG PO (08:51)
[2025-01-31] MEDS: AUGMENTIN 875 MG/125 MG 1 TABLET PO (08:51)
[2025-01-31] MEDS: MIRALAX 17 GRAMS PO (08:56)
[2025-01-31] MEDS: TYLENOL 650 MG PO (08:57)
[2025-01-31] MEDS: ELIQUIS 5 MG PO (09:01)
--- NOTE | 2025-01-31 09:25 | W.PN.HOSP.TC ---
Today's Communication/Plan
-
Medically stable for DC to SNF pending bed/auth. CM aware.
Assessment / Plan
Assessment / Plan
HPI: 79-year-old female with past medical history significant for hypertension, hyperlipidemia, paroxysmal atrial fibrillation, HFrEF, Rheumatoid arthritis, nonischemic cardiomyopathy, moderate mitral regurgitation, Hx uterine cancer and Hx breast
cancer; who presented with right thigh pain and edema. 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
She endorses nausea and vomiting on DOA.
Assessment:
R thigh pain and swelling
- CT: right thigh lateral compartment superficial muscle fascial hematoma, with suggestion of active extravasation at the superior margin
- Vascular evaluated; s/p hematoma evacuation 01/23. Vascular re-evaluated 01/29 and no concerns
- EDDI removed 01/25
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 Hb stable
- PT/OT - SNF recommended
Possible LLL PNA
- possible aspiration given lethargy 24 hours prior; ST evaluation passed
- continue Augmentin, day 06/02
- monitor O2 needs; none currently
Lethargy, acute encephalopathy on 01/27
- monitor mentation; improving
Acute blood loss anemia, exacerbated by Eliquis - in setting of Hematoma formation/evacuation
- s/p 2 unit PRBC; Hb 9.0 today.
Acute hyponatremia
- follow BMP
RAD - resolved
Essential HTN
- continue BB
Parox A. Fib
- RVR overnight 01/27 into 01/28
- continue BB
- continue Eliquis
- Cards following
Chronic HFrEF
nonischemic cardiomyopathy
- monitor I/Os, weights, lytes
RA
- on BULB PACKER Pregabalin and duloxetine
moderate mitral regurgitation
Hx uterine cancer
Hx breast cancer
Code status: DNR/DNI
DVT prophylaxis: Eliquis
Anticipated Discharge: Within 24 hours
Subjective/Interval History
-
Date of Service: January 31, 2025
resting comfortably, no complaints at present
Objective Data
-
Labs:
Laboratory Results
01/31/25
07:13
WBC 11.1 H
Hgb 9.0 L
Hct 26.8 L
Plt Count 419 H
Sodium 134 L
Potassium 3.7
Chloride 100
Carbon Dioxide 29
BUN 14
Creatinine 0.8
Glucose 92
Calcium 8.8
Vital Signs:
Vital Signs
Temp Pulse Resp BP Pulse Ox
98.4 F 71 16 140/73 96
01/31/25 07:49 01/31/25 08:51 01/31/25 07:49 01/31/25 08:51 01/31/25 07:49
I&O
01/30/25 01/31/25 02/01/25
06:59 06:59 06:59
Intake Total 1530 / 1530 300 / 300
Balance 1530 / 1530 300 / 300
Physical Exam
-
General: No Apparent Distress
HEENT: Normocephalic and Atraumatic
Respiratory: Negative Wheezes
Cardiac: Regular Rhythm and S1/S2
GI: Soft and Nontender
Genito-urinary: No Costovertebral Tender
Neuro: AO x 3
Psych: Calm
Data Reviewed
-
Total Time Spent with Patient (in minutes): 41
Labs: Labs Reviewed by me
--- NOTE | 2025-01-31 09:47 | PTCARENOTE ---
Multiple burst of SVT noted on tele overnight and this am. Patient reports to be asymptomatic. Dr. Bashir aware. Plan of care ongoing.
--- NOTE | 2025-01-31 10:05 | W.DCSUMMARY ---
Discharge Summary
Discharge Data
Date of Admission: 01/23/25
Date of Discharge: 01/31/25
-
Pending Results: No
Hospital Course
79 y/o F, hx of hypertension, hyperlipidemia, paroxysmal atrial fibrillation, HFrEF, Rheumatoid arthritis, nonischemic cardiomyopathy, moderate mitral regurgitation, Hx uterine cancer and Hx breast cancer who presented to [facility] ED on 01/22 for
evaluation of right thigh pain and edema. Patient was found to have right thigh lateral compartment superficial muscle fascial hematoma with active extravasation on CT. She underwent hematoma evacuation on 01/23. She required 2 units of blood for
blood loss anemia. Her course was complicated by Left lower lobe Pneumonia requiring a short course of Augmentin. She also had lethargy from pneumonia and opiate pain medications; that improved with treatment and reducing pain medications. She was
discharged to SNF on 01/31/25.
Discharge Plan
-
Patient Disposition: Halfway/SNF
Discharge Diagnosis/Procedures: Right thigh pain and swelling due to hematoma, status post evacuation on 01/23/2025 by vascular surgery
Condition: Good
Diet: Low Cholesterol and 2 Gram Sodium
Driving Restrictions: Not until seen by your Dr
Other Services: PT and OT
Stand Alone Forms: Vascular Surg Discharge Instr
Referrals:
Emigdio Lozano DO [Family Provider, Family Practice] - in less than 1 week
Madeleine Horn PA-C [Specified Professional Personl, Vascular Surgery] - 02/08/25 1:00 pm
Prescriptions:
New
sennosides [Suzan-josé] 8.6 mg Tablet
8.6 mg PO BID Qty: 60 0RF
polyethylene glycol 3350 17 gram Powder In Packet
17 g PO DAILY Qty: 30 0RF
amoxicillin-pot clavulanate 875-125 mg Tablet
1 tab PO Q12 Qty: 3 0RF
oxycodone 5 mg Tablet
2.5 mg PO Q6HPRN PRN (Reason: moderate to severe pain) Qty: 10 0RF
Eliquis 5 mg Tablet
5 mg PO BID Qty: 60 0RF
Continued
High Potency Probiotic 1 CAP capsule
1 cap PO DAILY
Caltrate 600 plus D 1 EACH tablet,chewable
1 tab PO HS
ascorbic acid (vitamin C) [Vitamin C] 500 MG tablet
500 mg PO DAILY
omeprazole 20 MG tablet,disintegrat, delay rel
20 mg PO DAILY
atorvastatin 40 MG tablet
40 mg PO DAILY
prednisone 10 mg Tablet
10 mg PO DAILY
metoprolol succinate 50 mg Tablet Extended Release 24 Hr
50 mg PO DAILY
metoprolol succinate 25 mg Tablet Extended Release 24 Hr
25 mg PO DAILY
duloxetine 30 mg Capsule,Delayed Release(Dr/Ec)
30 mg PO DAILY
duloxetine 60 mg Capsule,Delayed Release(Dr/Ec)
60 mg PO DAILY
baclofen 5 mg Tablet
5 mg PO BID
pregabalin 50 mg Capsule
50 mg PO DAILY Qty: 10 0RF
Discharge Orders:
Discharge Patient (As Directed); Ordered 01/31/25
Ordered By: Cain Bashir
Discharge Date and Time
Print Language: SAMMARINESE
--- NOTE | 2025-01-31 10:40 | CM ---
Pt is discharged to [facility] today. Dtr and pt aware. Pt will be transported by ambulance.
[facility] - 1st Floor
report:[phone]

Plan: Discharged to SNF
[2025-01-31 11:10] VITALS: BP 119/63
== END 2025-01-31 13:45 | DRG 987 ==
LOC: 4 EAST ACU 00:10
PROVIDERS: Emergency Medicine; Internal Medicine; Nurse Practitioner Family; Surgery Vascular Surgery; ADMITTING PHYSICIAN Internal Medicine; ATTENDING PHYSICIAN Internal Medicine; EMERGENCY PHYSICIAN Student in an Organized Health Care Education/Training Program; FAMILY PHYSICIAN Family Medicine; OTHER PHYSICIAN Nurse Practitioner Acute Care; OTHER PHYSICIAN Student in an Organized Health Care Education/Training Program
PROC: 0JCL0ZZ Extirpation of Matter from Right Upper Leg Subcutaneous Tissue and Fascia, Open Approach (ICD-10-PCS; 2025-01-23)
PROC: 30233N1 Transfusion of Nonautologous Red Blood Cells into Peripheral Vein, Percutaneous Approach (ICD-10-PCS; 2025-01-24)
DX: M79.81 Nontraumatic hematoma of soft tissue (principal); J18.9 Pneumonia, unspecified organism; I42.8 Other cardiomyopathies; I50.42 Chronic combined systolic (congestive) and diastolic (congestive) heart failure; D62 Acute posthemorrhagic anemia; E87.1 Hypo-osmolality and hyponatremia; E87.20 Acidosis, unspecified; I47.19 Other supraventricular tachycardia; G93.40 Encephalopathy, unspecified; D68.32 Hemorrhagic disorder due to extrinsic circulating anticoagulants; I11.0 Hypertensive heart disease with heart failure; Z85.3 Personal history of malignant neoplasm of breast; Z85.42 Personal history of malignant neoplasm of other parts of uterus; E78.00 Pure hypercholesterolemia, unspecified; I48.0 Paroxysmal atrial fibrillation; M06.9 Rheumatoid arthritis, unspecified; Z66 Do not resuscitate; M79.7 Fibromyalgia; Z88.2 Allergy status to sulfonamides; Z79.899 Other long term (current) drug therapy; Z90.710 Acquired absence of both cervix and uterus; Z96.653 Presence of artificial knee joint, bilateral; Z11.52 Encounter for screening for COVID-19
CPT/HCPCS: 10140; 70450; 71045; 73701; 80048; 80053; 81003; 81015; 82533; 82962; 83605; 83735; 83930; 83935; 84300; 84443; 85014; 85018; 85025; 85027; 85610; 86850; 86900; 86901; 86920; 87040; 87086; 87502; 87811; 88304; 92610; 93005; 96365; 96372; 96375; 97163; 97166; 97530; 99285; P9016; Q9967